=== PATIENT | female | born 1985 | race Caucasian/White ===

== ENCOUNTER 2020-07-17 21:30 | Emergency (ER) | payer BC, SELFPAY ==
--- NOTE | ~2020-07-17 | CT_ITS ---
EXAMINATION: CT abdomen pelvis w con DATE: 07/18/2020 01:08 INDICATION: Abdominal pain. TECHNIQUE: Computed tomography (CT) of the abdomen and pelvis was performed with 100 mL Omnipaque 350 intravenous contrast. Automated exposure control and iterative reconstruction technique were employe d. The dose-length product was 205.43 mGy-cm. COMPARISON: None. FINDINGS: The visualized portions of lung bases demonstrate mild atelectasis. No pleural effusion. Th e heart size is normal. No pericardial effusion. There is dependent sludge or stones in the gallbladd er, which is normal in size. The liver, spleen, pancreas, adrenal glands, and right kidney are normal . There is mild left hydronephrosis. There is a gastrostomy tube in expected position. There is a sma ll umbilical hernia containing fat. There is diffuse wall thickening of the bladder. There is punctat e gas in the bladder lumen, likely from recent instrumentation. Bilateral tubal ligation clips are no kentrell. There is a large volume of stool in the colon. There are changes of appendectomy. The left periu terine and ovarian veins are enlarged, consistent with pelvic venous insufficiency. There are no path ologically enlarged lymph nodes. There is no free intraperitoneal fluid. The bones are unremarkable. IMPRESSION: 1. Mild left hydronephrosis. 2. Diffuse bladder wall thickening, consistent with cystitis. 3. Pelvic venous insufficiency. Reviewed, dictated and finalized at location A.
--- NOTE | ~2020-07-17 | XR_ITS ---
EXAMINATION: XR chest 1V portable 07/17/2020 21:57 INDICATION: Hypotension PROCEDURE: AP portable chest COMPARISON: No prior studies for comparison. FINDINGS: The lungs are clear. The cardiomediastinal silhouette is within normal limits. There are no pleural effusions. There is no pneumothorax suspected. IMPRESSION: 1: NO ACUTE CARDIOPULMONARY DISEASE. Reviewed, dictated and finalized at location A.
[2020-07-17 21:31] VITALS: BP 79/60; PULSE 79; RESP 18; TEMP 37.1; O2SAT 100
[2020-07-17 21:41] VITALS: BP 74/62; PULSE 84; RESP 16; RESP 17; TEMP 37.1; O2SAT 100
--- NOTE | 2020-07-17 21:44 | ECG_ITS ---
Measurements Intervals [place] Rate: 81 P: 79 VT: 151 QRS: 46 QRSD: 80 T: 86 QT: 374 QTc: 436 Interpretive Statements SINUS RHYTHM EARLY PRECORDIAL R/S TRANSITION BORDERLINE T WAVE ABNORMALITY- HIGH LATERAL LEADS BASELINE ARTIFACT- II, III, AVR, AVL, AVF, V5-V6 BORDERLINE ECG Electronically Signed On 07-18-2020 7:32:23 CDT by Jim Farmer D.O.
--- NOTE | 2020-07-17 21:45 | PC.NURSE ---
EDMD presented to bedside. Updated pt on poc and pt voices her understanding.
--- NOTE | 2020-07-17 21:51 | PC.NURSE ---
CXR completed at bedside.
[2020-07-17] MEDS: SODIUM CHLORIDE 0.9% IV 1,000 ML 999 ML IV CONT ×2 (22:15)
--- NOTE | 2020-07-17 22:39 | PC.NURSE ---
Pt remains in trendelenburg position and is tolerating position well. Pt remains hypotensive but remains alert and oriented x4. BP currently 89/56. Pt has no complaints or concerns voiced at this time.
[2020-07-17 22:41] VITALS: BP 89/56; PULSE 78; RESP 17; O2SAT 100
--- NOTE | 2020-07-17 22:59 | PC.NURSE ---
Pt straight cath for urine specimen and tolerated procedure well.
--- NOTE | 2020-07-17 22:59 | PC.NURSE ---
Urine specimen collected and sent to lab. EDRN at bedside for blood draws by use of ultrasound as other attempts were unsuccessful. Pt remains in trendelenburg position and continues to tolerate well. BP is now 95/67 at this time. Pt remains alert and oriented x4. Advised to press call button for assistance.
[2020-07-17 23:01] VITALS: BP 95/67; PULSE 68; RESP 15; O2SAT 99
[2020-07-17 23:16] LABS: Add Urine Microscopic? YES; Appearance Urine Cloudy (Clear); Bacteria Urine 2+ /hpf; Bilirubin Urine Negative (Negative); Blood Urine Negative (Negative); Color Urine Yellow (Yellow); Glucose Urine UA Negative (Negative); Ketones Urine Negative (Negative); Leukocyte Esterase Ur 3+ LEU/UL (Negative); Nitrate Urine Negative (Negative); Protein Urine 1+ mg/dL (Negative); Specific Grav Ur 1.006 (1.001-1.035); Squamous Epithelial Cell Urine Few /hpf (Few); Urobilinogen Urine Negative mg/dL (<2.0); WBC Clumps Urine Present /HPF; WBC Urine >75 /hpf
[2020-07-17 23:20] LABS: Basophils Percent Auto 0.4 % (0.2-1.2); Eosinophils Absolute Auto 0.1 K/mm3 (0-0.3); Eosinophils Percent Auto 1.6 % (0-4.4); Hematocrit 34.5 % (37.0-47.0); Hemoglobin 10.7 g/dL (12.0-15.0); Immature Granulocyte Absolute 0.01 K/mm3 (0.00-0.031); Immature Granulocyte Percent A 0.1 % (0-0.5); Lymphocytes Absolute Auto 4.68 K/mm3 (0.9-3.2); Lymphocytes Percent Auto 61.5 % (18.3-44.2); Mean Corpuscular Volume 103.3 fl (80-100); Mean Platelet Volume 9.9 fl (7.4-10.4); Monocytes Absolute Auto 0.4 K/mm3 (0.1-0.6); Monocytes Percent Auto 5.7 % (2.6-8.5); Neutrophils Absolute Auto 2.3 K/mm3 (1.3-6.7); Neutrophils Percent Auto 30.7 % (45.5-73.1); Platelet Count Result 197 k/mm3 (150-375); Red Blood Count 3.34 M/mm3 (4.2-5.4); Red Cell Distribution Width 12.4 % (11.5-14.5); White Blood Count 7.6 K/mm3 (4.5-10.0)
[2020-07-17 23:30] LABS: INR 0.9; Partial Thromboplastin Time 26.9 SECONDS (22.3-36.8); Prothrombin Time 12.5 Seconds (11.1-14.7)
[2020-07-17 23:37] LABS: Lactic Acid Reflex 0.9 mmol/L (0.7-2.1)
[2020-07-17 23:42] LABS: Alanine Aminotransferase 18 U/L (4-35); Albumin Level 3.1 g/dL (3.5-5.1); Alkaline Phosphatase 28 U/L (38-126); Anion Gap 4 mmol/L (8-16); Aspartate Amino Transferase 21 U/L (14-36); Bilirubin,Total < 0.1 mg/dL (0.2-1.3); Blood Urea Nitrogen 26 mg/dL (7-17); Calcium 8.1 mg/dL (8.4-10.2); Carbon Dioxide 28 mmol/L (22-30); Chloride 107 mmol/L (98-107); Estimated Glomerular Filt Rate > 60; Glucose 78 mg/dL (65-105); Lipase 46 U/L (23-300); Potassium 3.8 mmol/L (3.4-5.0); Sodium 139 mmol/L (137-145)
[2020-07-17 23:49] LABS: Atypical Lymphocytes Present; Platelet Estimate Adequate (Adequate)
[2020-07-17 23:50] LABS: Large Platelets Present
[2020-07-17 23:54] LABS: CRP < 0.5 mg/dL (<1.0)
--- NOTE | 2020-07-17 23:55 | PC.NURSE ---
Spoke with nurse at [facility] and updated on poc.
--- NOTE | 2020-07-17 23:57 | PC.NURSE ---
Pt removed from trendelenbrg position to determine toleration.
--- NOTE | 2020-07-18 00:13 | PC.NURSE ---
Pt replaced in trendelenburg position as she did not tolerate removal well. Pt noted to remain hypotensive. Will notify EDMD.
[2020-07-18 00:19] VITALS: BP 93/75; PULSE 93; RESP 18; O2SAT 98
[2020-07-18] MEDS: SODIUM CHLORIDE 0.9% IV 1,000 ML 999 ML IV CONT (00:20)
[2020-07-18] MEDS: KETOROLAC 30 MG/ML VIAL (*BKC) IV PUSH (00:26)
--- NOTE | 2020-07-18 00:32 | PC.NURSE ---
Pt remains in trendelenburg position and continues to tolerate position well. BP now 101/74.
[2020-07-18 00:37] VITALS: BP 101/74; PULSE 85; RESP 14; O2SAT 100
--- NOTE | 2020-07-18 00:57 | PC.NURSE ---
Pt to radiology via cart.
--- NOTE | 2020-07-18 01:17 | ED.GENADULT ---
HPI - General Adult General Chief complaint: Recheck/Abnormal Lab/Rx Stated complaint: hypotension Time Seen by Provider: 07/17/20 21:37 History of Present Illness HPI narrative: Patient is a 35-year-old female that presents from an extended care facility with chief complaint of hypertension. Patient was noted to have low blood pressures today and was a also has been losing weight. Patient has a PEG tube that she receives her feedings through the patient otherwise has no complaints. The patient states that she feels a little weak but otherwise is doing okay the patient denies fever denies cough denies shortness of breath. Related Data Allergies Allergy/AdvReac Type Severity Reaction Status Date / Time No Known Allergies Allergy Verified 07/17/20 22:03 Review of Systems Review of Systems: Narrative: A 10 system review of systems was completed on the patient and is negative except for what is stated in the HPI. Nursing and ancillary documentation was reviewed. PMFSH Comments Past medical history the patient is a resident of extended care facility has history of pulmonary embolisms history of an MT also has had a PEG tube placement. Social history the patient is a resident of a residential. Exam Narrative: Exam Narrative: GENERAL: Well-appearing, well-nourished, and in no acute distress. HEAD: Normocephalic, atraumatic. EYES: PERRLA and EOMI. ENT: Nares clear, no rhinorrhea or epistaxis. Mucous membranes moist. NECK: Supple. CHEST: Clear to auscultation. No respiratory distress. HEART: Regular rate and rhythm. No murmur heard. Normal peripheral pulses. ABDOMEN: Soft, nontender, nondistended, normal active bowel sounds. PEG tube in place EXTREMITIES: Normal range of motion. No edema. SKIN: Warm, dry, no rash. NEURO: No focal deficits. Alert and oriented x3. PSYCH: Normal mood and affect. Course Vital Signs Vital signs: Vital Signs Temperature 37.1 C 07/17/20 21:31 Pulse Rate 79 07/17/20 21:31 Respiratory Rate 18 07/17/20 21:31 Blood Pressure 79/60 L 07/17/20 21:31 Pulse Oximetry 100 07/17/20 21:31 Temperature 37.1 C 07/17/20 21:41 Pulse Rate 80 07/18/20 01:36 Respiratory Rate 15 07/18/20 01:36 Blood Pressure 111/76 07/18/20 01:36 Pulse Oximetry 100 07/18/20 01:36 Medical Decision Making Vital Signs Vital Signs: Vital Signs Temperature 37.1 C 07/17/20 21:31 Pulse Rate 79 07/17/20 21:31 Respiratory Rate 18 07/17/20 21:31 Blood Pressure 79/60 L 07/17/20 21:31 Pulse Oximetry 100 07/17/20 21:31 Temperature 37.1 C 07/17/20 21:41 Pulse Rate 80 07/18/20 01:36 Respiratory Rate 15 07/18/20 01:36 Blood Pressure 111/76 07/18/20 01:36 Pulse Oximetry 100 07/18/20 01:36 Lab Data Result diagrams: 07/17/20 23:07 07/17/20 23:07 Labs: Lab Results 07/17/20 07/17/20 07/17/20 Range/Units 22:59 23:07 23:07 WBC 7.6 (4.5-10.0) K/mm3 RBC 3.34 L (4.2-5.4) M/mm3 Hgb 10.7 L (12.0-15.0) g/dL Hct 34.5 L (37.0-47.0) % MCV 103.3 H (80-100) fl MCH 32.0 (26-34) pg MCHC 31.0 L (32-36) g/dl RDW 12.4 (11.5-14.5) % Plt Count 197 (150-375) k/mm3 MPV 9.9 (7.4-10.4) fl Immature Gran % (Auto) 0.1 (0-0.5) % Neut % (Auto) 30.7 L (45.5-73.1) % Lymph % (Auto) 61.5 H (18.3-44.2) % Marion % (Auto) 5.7 (2.6-8.5) % Eos % (Auto) 1.6 (0-4.4) % Baso % (Auto) 0.4 (0.2-1.2) % Lymph # (Auto) 4.68 H (0.9-3.2) K/mm3 Marion # (Auto) 0.4 (0.1-0.6) K/mm3 Eos # (Auto) 0.1 (0-0.3) K/mm3 Baso # (Auto) 0.0 (0.0-0.1) K/mm3 Abs Immat Gran (auto) 0.01 (0.00-0.031) K/mm3 Absolute Neuts (auto) 2.3 (1.3-6.7) K/mm3 Absolute Nucleated RBC 0.0 (0.0-0.012) K/mm3 Nucleated RBC % 0.0 (0.0-0.2) % Atypical Lymphocytes Present Platelet Estimate Adequate (Adequate) Large Platelets Present PT 12.5 (11.1-14.7) Seconds INR 0.9
[2020-07-18 01:36] VITALS: BP 111/76; PULSE 80; RESP 15; TEMP 37.1; O2SAT 100
--- NOTE | 2020-07-18 01:37 | PC.NURSE ---
Pt removed from trendelenburg position at 0120 and is tolerating well; BP is now 111/76. Pt also states that her back pain has improved and rates it 1/10 at this time. Pt resting on cart with call button and personal items within reach. Advised to press call button for assistance.
--- NOTE | 2020-07-18 01:45 | PC.NURSE ---
Report called to [facility] receiving nurse, Di. Ok to send pt over.
--- NOTE | 2020-07-18 01:46 | PC.NURSE ---
called [facility] to transport patient. ETA 15 minutes.
--- NOTE | 2020-07-18 02:06 | PC.NURSE ---
[facility] here.
--- NOTE | 2020-07-18 02:10 | PC.NURSE ---
[facility] arrived for transport.
[2020-07-18 02:25] VITALS: BP 111/76; PULSE 80; RESP 15; TEMP 37; O2SAT 100
[2020-07-18 02:29] VITALS: BP 111/76; PULSE 80; RESP 15; TEMP 37; O2SAT 100
== END 2020-07-18 02:30 ==
PROVIDERS: Emergency Provider Emergency Medicine; PCP Internal Medicine
DX: N39.0 Urinary tract infection, site not specified (principal); Z93.1 Gastrostomy status; I25.2 Old myocardial infarction; Z86.711 Personal history of pulmonary embolism; R94.31 Abnormal electrocardiogram [ECG] [EKG]; N13.30 Unspecified hydronephrosis; I87.2 Venous insufficiency (chronic) (peripheral)
CPT/HCPCS: 36415; 51701; 71045; 74177; 80053; 81001; 81025; 83605; 83690; 85025; 85610; 85730; 86140; 87040; 87077; 87086; 87088; 87186; 93005; 96361; 96365; 96375; 99284; J0696; J1885; J7030; Q9967

== ENCOUNTER 2020-07-22 21:16 | Emergency (ER) | payer BC, SELFPAY ==
--- NOTE | ~2020-07-22 | CT_ITS ---
EXAMINATION: CT brain wo con DATE: 07/23/2020 00:14 INDICATION: Headache. Fall. TECHNIQUE: Computed tomography (CT) of the head was performed without intravenous contrast. The mA wa s adjusted according to patient size. Iterative reconstruction technique was employed. The dose-lengt h product was 605.33 mGy-cm. COMPARISON: None FINDINGS: There is no intracranial hemorrhage, acute infarction, or abnormal intracranial mass lesion . The ventricles are normal in size. The orbits are normal. The paranasal sinuses are clear. The mast oid air cells are normal. IMPRESSION: 1. Normal brain. Reviewed, dictated and finalized at location A. IMPRESSION: 1. Normal brain.
--- NOTE | ~2020-07-22 | CT_ITS ---
EXAMINATION: CT cervical spine wo con DATE: 07/23/2020 00:14 INDICATION: Neck pain. Fall. TECHNIQUE: Computed tomography (CT) of the cervical spine was performed without intravenous contrast. Automated exposure control and iterative reconstruction technique were employed. The dose-length pro duct was 122.49 mGy-cm. COMPARISON: None FINDINGS: There is 12 degrees dextroscoliosis of cervical spine. There is kyphosis of cervical spine. Vertebral body heights are normal. There is mildly decreased disc height at C5-C6. At C7-T1, there i s mild bilateral facet joint osteoarthritis. No neural foraminal stenosis. At C5-C6, there is mild ce ntral canal stenosis. IMPRESSION: 1. Mild cervical spondylosis. 2. Cervical dextroscoliosis and kyphosis. Reviewed, dictated and finalized at location A.
[2020-07-22 21:18] VITALS: BP 95/69; PULSE 80; RESP 15; TEMP 36.5; O2SAT 100
[2020-07-22 21:28] VITALS: BP 95/69; PULSE 82; RESP 16; TEMP 36.5; O2SAT 100
--- NOTE | 2020-07-22 21:30 | PC.NURSE ---
Pt presents to ED via EMS with complaints of fall out of bed that was in it lowest position at nursing facility. Per EMS, staff denies loc. Pt sent as precaution because she is prescribed blood thinners. Pt noted to be alert and oriented x4. Pt states she was laying in bed and woke up looking for something and fell out the bed. Pt states she hit the right side of her head on a tiled floor. Pt denies loc, nausea and emesis. Pt remains alert and oriented x4 and in no obvious distress. Vitals are stable. Call button and personal items within reach. Pt advised to press call button for assistance.
--- NOTE | 2020-07-22 22:00 | ED.FALL ---
HPI - Fall General Chief Complaint: Fall Stated Complaint: glf - rt side hematoma Time Seen by Provider: 07/22/20 21:29 Source: patient Mode of arrival: ambulatory Limitations: no limitations History of Present Illness HPI Narrative: Patient is a 35-year-old female complaining of head pain after she fell out of bed. Patient states her pain is an 8 out of 10, back of her head. Patient denies any other pain or injury. Patient denies any neck pain, back pain, chest pain, hip pain or any extremity pain/injury. Patient states that she is currently bedridden and unable to walk, does not know what was causing it and she has been worked up for it was told that it is due to her GI system. Related Data Allergies Allergy/AdvReac Type Severity Reaction Status Date / Time No Known Allergies Allergy Verified 07/17/20 22:03 Review of Systems Review of Systems: All systems reviewed & are unremarkable except as noted in HPI and below Constitutional: Constitutional: Denies body ache(s), Denies chills, Denies excessive sweating, Denies fatigue, Denies fever(s), Denies headache(s), Denies lethargy, Denies malaise, Denies weakness and Denies weight loss Eyes: Eyes: Denies blurry vision, Denies change in vision and Denies loss of vision ENT: Denies dizziness, Denies ear discharge, Denies headache(s), Denies lip swelling, Denies epistaxis, Denies nasal congestion, Denies neck pain, Denies throat swelling and Denies tongue swelling Cardiovascular: Cardiovascular: Denies chest pain, Denies chest pain at rest, Denies chest pain with activity, Denies diaphoresis, Denies rapid heart rate, Denies edema, Denies irregular heart rhythm, Denies lightheadedness, Denies palpitations, Denies dyspnea and Denies dyspnea on exertion Respiratory: Respiratory: Denies chest congestion, Denies cough, Denies hemoptysis, Denies dyspnea and Denies dyspnea on exertion Gastrointestinal: Gastrointestinal: Denies abdominal pain, Denies melena, Denies hematochezia, Denies diarrhea, Denies nausea, Denies vomiting and Denies hematemesis Musculoskeletal: Musculoskeletal: Denies abnormal gait, Denies deformity, Denies joint swelling, Denies limited range of motion, Denies neck pain and Denies numbness Neurologic: Denies Abnormal speech present, Denies abnormal gait, Denies confusion, Denies dizziness, Denies focal weakness, Denies loss of vision, Denies numbness, Denies Other visual disturbances, Denies Sensory deficit (Neuro) and Denies weakness Psychiatric: Psychiatric: Denies confusion, Denies depression, Denies auditory hallucinations, Denies homicidal ideation and Denies suicidal ideation Endocrine: Endocrine: Denies cold intolerance, Denies excessive sweating, Denies fatigue, Denies heat intolerance and Denies palpitations Hematologic/Lymphatic: Hematologic/Lymphatic: Denies easy bleeding and Denies easy bruising Allergic/Immunologic: Allergic/Immunologic: Denies lip swelling, Denies throat swelling and Denies tongue swelling PMFSH Comments Past medical history: GI disorder, unknown Family history: Negative for heart disease negative for stroke Social history: Smokes medical marijuana, no EtOH or drug use Exam Const: General: no acute distress and alert Nutritional Appearance: thin Orientation/consciousness: patient oriented x3 Limitations: no limitations Other: Frail, cachectic HENMT: Head: normal to inspection, normocephalic and atraumatic Ears: hearing grossly normal bilaterally, TM normal on the right and TM normal on the left General nose exam: Normal external nose present, Normal nares present and No nasal discharge present Face and sinus: normal facial exam Mouth: Yes Normal oral and palatal mucosa present, Yes lip normal, Yes tongue normal and Yes oropharynx normal Throat: posterior oropharynx normal, tonsils normal and uvula midline Eyes: General: appearance normal, both eyes and all related structures Pupils: Equal, round and reactive pupils present EOM: EOMs
[2020-07-22] MEDS: HYDROcodone/acetaminophen (*CRX) 5-325 MG TABLET 1 TAB PO (23:18)
--- NOTE | 2020-07-22 23:18 | PC.NURSE ---
pt resting on cart in its lowest position with no complaints or concerns voiced. Vitals are stable and pt in no obvious distress.
[2020-07-22 23:19] VITALS: BP 95/76; PULSE 101; RESP 17; O2SAT 98
--- NOTE | 2020-07-22 23:57 | PC.NURSE ---
Pt refuses straight cath and EDMD notified. EDMD ok with flagging test.
--- NOTE | 2020-07-23 00:13 | PC.NURSE ---
Pt to and from radiology via cart. Call button and personal items within reach. vitals are stable and pt in no obvious distress.
[2020-07-23 01:22] VITALS: BP 96/74; PULSE 77; RESP 46; O2SAT 96
--- NOTE | 2020-07-23 01:25 | PC.NURSE ---
Pt resting on cart in its lowest position with call button and personal items within reach. Pt denies pain at this time. Sean wasted with charge auditor. Pt vitals are stable and pt in no obvious distress at this time.
[2020-07-23 01:26] VITALS: BP 94/75; PULSE 97; RESP 13; TEMP 36.6; O2SAT 96
--- NOTE | 2020-07-23 02:06 | PC.NURSE ---
EMS to with an ETA of 30mins.
--- NOTE | 2020-07-23 02:06 | PC.NURSE ---
Report called to Evelia at [facility].
--- NOTE | 2020-07-23 03:09 | PC.NURSE ---
[facility] here.
--- NOTE | 2020-07-23 03:11 | PC.NURSE ---
EMS arrived for pt transport back to [facility].
[2020-07-23 03:14] VITALS: BP 100/76; PULSE 89; RESP 13; O2SAT 98
== END 2020-07-23 03:16 ==
PROVIDERS: Emergency Provider Emergency Medicine; PCP Internal Medicine
DX: S09.90XA Unspecified injury of head, initial encounter (principal); K92.9 Disease of digestive system, unspecified; W06.XXXA Fall from bed, initial encounter
CPT/HCPCS: 70450; 72125; 99284; A9270

== ENCOUNTER 2022-12-29 08:53 | Inpatient (IN) | payer BC, SELFPAY ==
[2022-12-29] VITALS (10 sets, daily range): BP systolic 95–145; BP diastolic 64–108; PULSE 69–95; RESP 16–20; TEMP 36.7–37.3; O2SAT 96–100
--- NOTE | ~2022-12-29 | CT_ITS ---
EXAMINATION: CT abdomen pelvis w con DATE: 12/29/2022 12:11 INDICATION: Suprapubic, right lower quadrant and left lower quadrant abdominal pain TECHNIQUE: Computed tomography (CT) of the abdomen and pelvis was performed with 100 CC Omnipaque 350 intravenous contrast. Automated exposure control and iterative reconstruction technique were employe d. Exam dose: 460.22 mGy-cm total exam DLP. COMPARISON: 07/18/2020 CT abdomen pelvis FINDINGS: Minimal discoid atelectasis at the posterior lung bases, lower lobes. Normal heart size. No pericardial or pleural effusion. There is suggestion of sludge or stones in the dependent aspect of the gallbladder. Gallbladder ultra sound would be more sensitive and accurate for detection of cholelithiasis. Gallbladder wall thicknes s is within normal range. No pericholecystic fluid or fat stranding is noted. No bile duct or pancrea tic duct dilatation. No hepatic, splenic, pancreatic or adrenal space-occupying mass lesion. There is diffusely diminished intensity of contrast enhancement of the right kidney compared to the l eft kidney. There is moderately prominent right hydronephrosis and pelviectasis. There is some enhanc ement of the renal pelvis and ureter on the right. There is diffuse thickening of the wall of the uri nary bladder with shaggy outline, suggesting possible cystitis. There is enhancement of the left renal collecting system and left renal pelvis. There is an approximately 3.3 cm right adnexal cystic lesion. Peripherally enhancing approximately 1. 4 cm left corpus luteum cyst. Status post bilateral tubal ligation. The uterus appears unremarkable. Status post appendectomy. No bowel obstruction, bowel wall thickening, pneumatosis or intraperitoneal free air is detected. No abdominal aortic aneurysm. No intraperitoneal or retroperitoneal or pelvic mass lesion or adenopat hy or ascites. Included skeletal structures are unremarkable. IMPRESSION: Suggestion of cystitis and bilateral pyelonephritis, worse on the right. Moderately severe right hydronephrosis Possible sludge and/or stones in the dependent aspect of the gallbladder Status post appendectomy 3.3 cm right ovarian cyst 1.4 cm corpus luteum cyst of left ovary Status post bilateral tubal ligation Reviewed, dictated and finalized at [facility] Reviewed, dictated and finalized at [facility].
--- NOTE | 2022-12-29 10:58 | ED.FEMALEGU ---
HPI - Female Genitourinary General Chief complaint: Urogenital-Female <Caryn Sandoval PA-C - Last Filed: 12/29/22 13:20> Stated complaint: urinary retention <Caryn Sandoval PA-C - Last Filed: 12/29/22 13:20> Time Seen by Provider: 12/29/22 10:05 <Caryn Sandoval PA-C - Last Filed: 12/29/22 13:20> History of Present Illness HPI Narrative: 37-year-old female with history of bipolar disorder, IBS, alcohol induced pancreatitis, hyperlipidemia, coronary artery disease reports from [facility] for evaluation for decreased urinary output for the past 24 hours. Per the patient, Grant catheter was placed at home but yesterday with persistent decreased urine output. Patient states she has had dysuria for the past week and believes she has urinary tract infection. She also reports right flank pain and lower abdominal pain. She states she has noticed urine output today in her Grant bag. She denies hematuria, diarrhea, fever, body aches or chills, chest pain or shortness of breath. She does report nausea and vomiting and states he has vomited once per day for the past week. Last bowel movement was a couple days ago and normal. <Caryn Sandoval PA-C - Last Filed: 12/29/22 13:20> Related Data Home medications: Home Medications Medication Instructions Recorded Confirmed acetaminophen 650 mg 650 mg PO Q8H PRN Pain, Mild 12/29/22 12/29/22 tablet,extended release aspirin 81 mg tablet 81 mg PO DAILY 12/29/22 12/29/22 atorvastatin 20 mg tablet 20 mg PO HS 12/29/22 12/29/22 cyclobenzaprine 5 mg tablet 5 mg PO TID PRN Muscle Spasm 12/29/22 12/29/22 duloxetine 60 mg capsule,delayed 120 mg PO DAILY 12/29/22 12/29/22 release famotidine 20 mg tablet 20 mg PO BID 12/29/22 12/29/22 gabapentin 100 mg tablet 200 mg PO TID 12/29/22 12/29/22 melatonin 5 mg tablet 5 mg PO HS PRN Insomnia 12/29/22 12/29/22 olanzapine 10 mg tablet 10 mg PO DAILY 12/29/22 12/29/22 ondansetron HCl 4 mg tablet 4 mg PO Q6H PRN Nausea 12/29/22 12/29/22 polyethylene glycol 3350 17 gram 17 g PO DAILY 12/29/22 12/29/22 oral powder packet (Miralax) polyethylene glycol 3350 17 gram 17 g PO DAILY PRN Constipation 12/29/22 12/29/22 oral powder packet (Miralax) tramadol 50 mg tablet 50 mg PO Q6H PRN Pain, Moderate 12/29/22 12/29/22 <Caryn Sandoval PA-C - Last Filed: 12/29/22 13:20> Allergies/Adverse reactions: Allergies Allergy/AdvReac Type Severity Reaction Status Date / Time No Known Allergies Allergy Verified 07/17/20 22:03 <Caryn Sandoval PA-C - Last Filed: 12/29/22 13:20> Review of Systems Review of Systems: CONSTITUTIONAL: Denies fever, chills EYES: Denies visual changes, redness, or discharge. ENT: Denies rhinorrhea, congestion, sore throat, or otalgia. CARDIOVASCULAR: Denies chest pain, palpitations, or edema. RESPIRATORY: Denies cough or dyspnea. GASTROINTESTINAL: See HPI GENITOURINARY: See HPI SKIN: Denies rash or itching. MUSCULOSKELETAL: See HPI NEUROLOGIC: Denies headache, numbness, dizziness, or weakness. PSYCHIATRIC: Denies anxiety or depression. <Caryn Sandoval PA-C - Last Filed: 12/29/22 13:20> [facility] Social History Social History: Social History Smoking status: Never smoker Alcohol intake: never Substance use: never Spiritual care concerns: No <Caryn Sandoval PA-C - Last Filed: 12/29/22 13:20> Exam Narrative: GENERAL: Well-appearing, in no acute distress. Patient resting comfortably in exam bed. She is pleasant and conversational. HEAD: Normocephalic EYES: PERRLA ENT: Nares clear. Mucous membranes moist. Oropharynx without tonsillar hypertrophy exudate or other lesions. Edentulous NECK: Supple. CHEST: No respiratory distress. Clear to auscultation, no adventitious breath sounds. HEART: Regular rate and rhythm. No murmur heard. Normal peripheral pulses. ABDOMEN: Abdomen soft, distended, normal active
[2022-12-29] MEDS: ONDANSETRON INJ 4 MG/2 ML VIAL IV PUSH (11:20)
[2022-12-29] MEDS: SODIUM CHLORIDE 0.9% IV 1,000 ML 999 ML IV CONT (11:20)
[2022-12-29 11:28] LABS: Appearance Urine Cloudy (Clear); Bilirubin Urine Negative (Negative); Blood Urine Trace-intact (Negative); Color Urine Yellow (Yellow); Glucose Urine UA Negative (Negative); Ketones Urine Negative (Negative); Leukocyte Esterase Ur 2+ LEU/UL (Negative); Nitrate Urine Positive (Negative); Protein Urine Negative (Negative); Urobilinogen Urine 0.2 mg/dL (<2.0)
[2022-12-29 11:28] LABS: Basophils Absolute Auto 0.1 K/mm3 (0.0-0.1); Basophils Percent Auto 0.4 % (0.2-1.2); Eosinophils Absolute Auto 0.1 K/mm3 (0-0.3); Eosinophils Percent Auto 0.8 % (0-4.4); Hematocrit 37.4 % (37.0-47.0); Hemoglobin 11.4 g/dL (12.0-15.0); Immature Granulocyte Absolute 0.11 K/mm3 (0.00-0.031); Immature Granulocyte Percent A 0.9 % (0-0.5); Lymphocytes Percent Auto 25.5 % (18.3-44.2); Mean Corpuscular HGB Conc 30.5 g/dl (32-36); Mean Corpuscular Hemoglobin 29.1 pg (26-34); Mean Corpuscular Volume 95.4 fl (80-100); Mean Platelet Volume 8.9 fl (7.4-10.4); Monocytes Absolute Auto 0.7 K/mm3 (0.1-0.6); Monocytes Percent Auto 5.4 % (2.6-8.5); Neutrophils Absolute Auto 8.1 K/mm3 (1.3-6.7); Platelet Count Result 488 k/mm3 (150-375); Red Blood Count 3.92 M/mm3 (4.2-5.4); Red Cell Distribution Width 13.3 % (11.5-14.5); White Blood Count 12.2 K/mm3 (4.5-10.0)
[2022-12-29 11:33] LABS: Alanine Aminotransferase 21 U/L (6-35); Albumin Level 3.8 g/dL (3.5-5.1); Alkaline Phosphatase 123 U/L (38-126); Anion Gap 9 mmol/L (8-16); Aspartate Amino Transferase 23 U/L (14-36); Bilirubin,Total 0.6 mg/dL (0.2-1.3); Blood Urea Nitrogen 8 mg/dL (7-17); Calcium 9.3 mg/dL (8.4-10.2); Carbon Dioxide 24 mmol/L (22-30); Chloride 105 mmol/L (98-107); Estimated CRCL calculation 59 ml/min; Estimated Glomerular Filt Rate > 60; Glucose 106 mg/dL (65-110); Lipase 47 U/L (23-300); Potassium 3.6 mmol/L (3.4-5.0); Sodium 138 mmol/L (137-145)
[2022-12-29 11:35] LABS: Bacteria Urine 4+ /hpf; Need Manual Microscopic Reviewed; Non Pathogenic Casts 0-2; Squamous Epithelial Cell Urine Many /hpf (Few); WBC Urine 51-100 /hpf
[2022-12-29 11:36] LABS: Add Urine Microscopic? YES
[2022-12-29 14:29] LABS: Lactic Acid Reflex 1.9 mmol/L (0.7-2.0)
[2022-12-29] MEDS: SODIUM CHLORIDE 0.9% IV 1,000 ML 125 ML IV CONT ×2 (14:56→23:57)
--- NOTE | 2022-12-29 20:33 | PM.IMHP ---
H&P: HPI History of Present Illness Date/Time: 12/29/22 20:33 Chief Complaint: Dysuria, Suprapubic Pain Narrative: 37-year-old female presents here with decreased urine output, dysuria, suprapubic pain with past medical history of MA complicated by subsequent CVA with residual deficits, and limited mobility. Patient presents here from [facility] with decreased urine output, dysuria, and suprapubic pain. Facility placed Grant catheter yesterday when the change in output was noted, no urinary output observed post-catheter. patient reported that she had been having urinary symptoms for the past week - dysuria without frequency, hematuria, or odor. She endorses fever, chills, mild shortness of breath, and a nonproductive cough that is new. She denies any current chest pain, diarrhea, nausea, or vomiting. Review of Systems Review of Systems: All systems reviewed & are unremarkable except as noted in HPI and below PMFSH Past Medical History Medical History (Updated 12/30/22 @ 01:19 by Salma Fountain APRN) Bedbound Bipolar disorder CAD (coronary artery disease) CVA, old, speech/language deficit Residual Weakness: L and R, upper and lower HLD (hyperlipidemia) IBS (irritable bowel syndrome) Myocardial infarction Social History Social History (Updated 12/30/22 @ 01:12 by Salma Fountain APRN) Social History: currently a resident at [facility]. surrogate decision maker: . full code Smoking status: Never smoker Alcohol intake: never Substance use: never Spiritual care concerns: No Meds Home Medications and Allergies Home Medications Medication Instructions Recorded Confirmed Type acetaminophen 650 mg 650 mg PO Q8H PRN Pain, Mild 12/29/22 12/29/22 History tablet,extended release aspirin 81 mg tablet 81 mg PO DAILY 12/29/22 12/29/22 History atorvastatin 20 mg tablet 20 mg PO HS 12/29/22 12/29/22 History cyclobenzaprine 5 mg tablet 5 mg PO TID PRN Muscle Spasm 12/29/22 12/29/22 History duloxetine 60 mg capsule,delayed 120 mg PO DAILY 12/29/22 12/29/22 History release famotidine 20 mg tablet 20 mg PO BID 12/29/22 12/29/22 History gabapentin 100 mg tablet 200 mg PO TID 12/29/22 12/29/22 History melatonin 5 mg tablet 5 mg PO HS PRN Insomnia 12/29/22 12/29/22 History olanzapine 10 mg tablet 10 mg PO QHS 12/29/22 12/29/22 History ondansetron HCl 4 mg tablet 4 mg PO Q6H PRN Nausea 12/29/22 12/29/22 History polyethylene glycol 3350 17 gram 17 g PO DAILY 12/29/22 12/29/22 History oral powder packet (Miralax) polyethylene glycol 3350 17 gram 17 g PO DAILY PRN Constipation 12/29/22 12/29/22 History oral powder packet (Miralax) tramadol 50 mg tablet 50 mg PO Q6H PRN Pain, Moderate 12/29/22 12/29/22 History Allergies Allergy/AdvReac Type Severity Reaction Status Date / Time No Known Allergies Allergy Verified 07/17/20 22:03 Vital Signs Vital Signs - 24 hr 12/29/22 09:03 12/29/22 10:32 12/29/22 11:02 Temperature 98.5 F Pulse Rate 76 83 Respiratory Rate 16 16 Blood Pressure 98/70 L 111/74 95/74 L Pulse Oximetry 96 98 99 Oxygen Delivery Room Air 12/29/22 12:31 12/29/22 13:31 12/29/22 14:01 Temperature Pulse Rate Respiratory Rate Blood Pressure 109/69 145/100 H 121/84 Pulse Oximetry Oxygen Delivery 12/29/22 15:00 12/29/22 15:10 12/29/22 15:46 Temperature 98.0 F 98.3 F Pulse Rate 69 80 Respiratory Rate 18 16 Blood Pressure 119/108 H 110/77 Pulse Oximetry 100 100 Oxygen Delivery Room Air 12/29/22 15:57 12/29/22 20:10 Temperature 99.1 F 98.4 F Pulse Rate 95 84 Respiratory Rate 16 20 Blood Pressure 103/64 104/71 Pulse Oximetry 97 98 Oxygen Delivery Exam Narrative: resting in hospital bed. Const: General: comfortable and no acute distress HENMT: Mouth: Yes moist mucous membranes Eyes: General: appearance normal, both eyes and all related structures Sclera: sclerae normal Pupils: Equal, round and reacti
[2022-12-29] MEDS: traMADol HCL (*CRX) 50 MG TABLET PO (20:55)
[2022-12-29] MEDS: GABAPENTIN 100 MG CAPSULE 200 MG PO (20:55)
[2022-12-29] MEDS: ATORVASTATIN 20 MG TABLET PO (20:55)
[2022-12-29] MEDS: CYCLOBENZAPRINE HCL 5 MG TABLET PO (20:56)
[2022-12-29] MEDS: MELATONIN 5 MG TABLET PO (20:56)
[2022-12-29] MEDS: OLANZapine 5 MG TABLET 10 MG PO (20:56)
[2022-12-29] MEDS: FAMOTIDINE 20 MG TABLET PO (20:56)
[2022-12-29 21:47] LABS: Influenza A QL RT-PCR Negative (Negative); Influenza B QL RT-PCR Negative (Negative); RSV RNA, RT-PCR Negative (Negative); SARS-CoV-2 RNA PCR Negative (Negative)
[2022-12-30] MEDS: ACETAMINOPHEN 325 MG TABLET 650 MG PO ×2 (01:58→12:48)
[2022-12-30] MEDS: LACTATED RINGERS 1,000 ML 100 ML IV CONT (02:04)
[2022-12-30 03:50] VITALS: BP 97/70; PULSE 87; RESP 20; TEMP 36.7; O2SAT 98
[2022-12-30 05:58] LABS: Basophils Absolute Auto 0.1 K/mm3 (0.0-0.1); Basophils Percent Auto 0.5 % (0.2-1.2); Eosinophils Absolute Auto 0.2 K/mm3 (0-0.3); Eosinophils Percent Auto 1.7 % (0-4.4); Hematocrit 36.4 % (37.0-47.0); Hemoglobin 11.1 g/dL (12.0-15.0); Immature Granulocyte Absolute 0.05 K/mm3 (0.00-0.031); Immature Granulocyte Percent A 0.5 % (0-0.5); Immature Platelet Fraction Pct 2.5 % (0.9-11.2); Lymphocytes Absolute Auto 3.01 K/mm3 (0.9-3.2); Lymphocytes Percent Auto 27.2 % (18.3-44.2); Mean Corpuscular HGB Conc 30.5 g/dl (32-36); Mean Corpuscular Hemoglobin 29.8 pg (26-34); Mean Corpuscular Volume 97.6 fl (80-100); Mean Platelet Volume 9.7 fl (7.4-10.4); Monocytes Absolute Auto 0.8 K/mm3 (0.1-0.6); Monocytes Percent Auto 6.9 % (2.6-8.5); Neutrophils Percent Auto 63.2 % (45.5-73.1); Platelet Count Result 460 k/mm3 (150-375); Red Blood Count 3.73 M/mm3 (4.2-5.4); Red Cell Distribution Width 13.5 % (11.5-14.5); White Blood Count 11.1 K/mm3 (4.5-10.0)
[2022-12-30 06:06] LABS: Alanine Aminotransferase 17 U/L (6-35); Albumin Level 3.4 g/dL (3.5-5.1); Alkaline Phosphatase 99 U/L (38-126); Anion Gap 7 mmol/L (8-16); Aspartate Amino Transferase 22 U/L (14-36); Bilirubin,Total 0.6 mg/dL (0.2-1.3); Blood Urea Nitrogen 5 mg/dL (7-17); Calcium 8.8 mg/dL (8.4-10.2); Carbon Dioxide 22 mmol/L (22-30); Chloride 110 mmol/L (98-107); Estimated CRCL calculation 73 ml/min; Estimated Glomerular Filt Rate > 60; Glucose 86 mg/dL (65-110); Sodium 139 mmol/L (137-145)
[2022-12-30] MEDS: ASPIRIN 81 MG CHEWABLE TABLET PO (07:58)
[2022-12-30] MEDS: GABAPENTIN 100 MG CAPSULE 200 MG PO ×3 (07:58→16:21)
[2022-12-30] MEDS: FAMOTIDINE 20 MG TABLET PO ×2 (07:59→16:21)
[2022-12-30] MEDS: DULoxetine HCL 60 MG CAPSULE.DR 120 MG PO (07:59)
[2022-12-30] MEDS: ENOXAPARIN 40 MG/0.4 ML SYRINGE SUB-Q (07:59)
[2022-12-30] MEDS: polyethylene glycoL 3350 17 GM POWD.PACK PO (07:59)
--- NOTE | 2022-12-30 13:19 | PM.IMPN ---
Progress Note: A&P Assessment and Plan (1) Pyelonephritis: Code(s): N12 - Tubulo-interstitial nephritis, not specified as acute or chronic Status: Acute Assessment and Plan: - UA positive for nitrates, 2+ leukocytes, 4+ bacteria, urine and blood cultures pending - continue Rocephin 1g q24 - WBC: 12.2 to 10.6 -CT abdomen/pelvis: cystitis and bilateral pyelonephritis, R<L with moderately severe right hydronephrosis.? Possible sludge and/or stones in the dependent aspect of the gallbladder. Evidence of a 3.3 cm right ovarian cyst and 1.4 cm corpus luteum cyst of the left ovary. - continue LR 100 mL/hour for hydration - monitor I&Os - a q.4 hours vital signs - continue monitoring daily labs CBC, CMP - (2) Hydronephrosis: Qualifiers: Hydronephrosis type: unspecified Qualified Code(s): N13.30 - Unspecified hydronephrosis Code(s): N13.30 - Unspecified hydronephrosis Status: Acute Assessment and Plan: see above (3) Shortness of breath: Code(s): R06.02 - Shortness of breath Status: Acute Assessment and Plan: -Viral PCR negative for influenza, RSV, COVID -?lung sounds clear on exam -?continue to monitor oxygen saturation, currently on room air -?no abnormalities of the lungs noted on CT abdomen pelvis Plan Problem List Time Spent With Patient Time with patient: 25 - 35 minutes Subjective Date/time seen: 12/30/22 13:19 Interval history: This is a 37-year-old female who presented to ED with urinary retention. Patient has had low urine output for past 24 hours prior to admission and a Grant was placed at home due to the urinary retention. She started complaining of dysuria for the past week with concerns for UTI. UA showing positive nitrates, 2+ leukocytes, 4+ bacteria. Urine culture and blood cultures pending. WBC 11.1, BUN/ Creat.- 5/0.08. Patient has history of E coli in the urine back in 2020 currently on IV Rocephin. On examination today patient denies pain or CVA tenderness. She also denies nausea, vomiting,diarrhea, or dysuria. Patient denies any complaints at this time. No overnight events. Review of Systems Review of Systems: All systems reviewed & are unremarkable except as noted in HPI and below Constitutional: Constitutional: Reports no additional constitutional complaints Eyes: Eyes: Reports no additional eye complaints ENT: Reports system reviewed and no additional complaints, except as documented Cardiovascular: Cardiovascular: Reports no additional cardiovascular complaints Respiratory: Respiratory: Reports no additional respiratory complaints Gastrointestinal: Gastrointestinal: Reports no additional gastrointestinal complaints Genitourinary: Genitourinary: Reports no additional female genitourinary complaints Musculoskeletal: Musculoskeletal: Reports no additional musculoskeletal complaints Integumentary/Breasts: Skin/Breast: Reports system reviewed and no additional complaints, except as docu Neurologic: Reports system reviewed and no additional complaints, except as documented Psychiatric: Psychiatric: Reports no additional psychiatric complaints Exam Narrative: GENERAL:? Patient resting comfortably in exam bed. HEAD: Normocephalic EYES: PERRLA, sclera clear ENT: Nares clear.? Mucous membranes moist.? NECK: Supple, no JVD? CHEST:? No respiratory distress. Clear to auscultation, no adventitious breath sounds. HEART: Regular rate and rhythm.? No murmur heard.? Normal peripheral pulses. Normal S1 and S2 ABDOMEN: Abdomen soft, non-distended, normoactive bowel sounds. No rebound, guarding or rigidity.? No CVA tenderness. EXTREMITIES: Moving all extremities spontaneously. Foot drop bilaterally SKIN: Warm, dry, no rash. NEURO: No focal deficits.? Alert and oriented x3. PSYCH: Normal mood, flat affect. Objective Data Vital Signs Vital Signs: Vital Signs - 24 hr 12/29/22 13:31 12/29/22 14:01 12/29/22 15:00 Te
[2022-12-30 14:00] VITALS: BP 106/68; PULSE 112; RESP 16; TEMP 36.4; O2SAT 98
[2022-12-30 16:00] VITALS: BP 112/59; PULSE 101; RESP 18; TEMP 36.3; O2SAT 98
[2022-12-30 19:22] VITALS: BP 112/64; PULSE 87; RESP 16; TEMP 36.6; O2SAT 97
[2022-12-30] MEDS: SODIUM CHLORIDE 0.9% IV 1,000 ML 125 ML IV CONT (20:20)
[2022-12-30] MEDS: traMADol HCL (*CRX) 50 MG TABLET PO (20:22)
[2022-12-30] MEDS: MELATONIN 5 MG TABLET PO (20:22)
[2022-12-30] MEDS: OLANZapine 5 MG TABLET 10 MG PO (20:22)
[2022-12-30] MEDS: CYCLOBENZAPRINE HCL 5 MG TABLET PO (20:22)
[2022-12-30] MEDS: ATORVASTATIN 20 MG TABLET PO (20:22)
[2022-12-31 04:00] VITALS: BP 110/76; PULSE 85; RESP 20; TEMP 36.9; O2SAT 97
[2022-12-31] MEDS: SODIUM CHLORIDE 0.9% IV 1,000 ML 125 ML IV CONT ×3 (04:42→21:21)
[2022-12-31 06:41] LABS: Basophils Absolute Auto 0.1 K/mm3 (0.0-0.1); Basophils Percent Auto 0.4 % (0.2-1.2); Eosinophils Absolute Auto 0.2 K/mm3 (0-0.3); Eosinophils Percent Auto 2.1 % (0-4.4); Hematocrit 36.6 % (37.0-47.0); Hemoglobin 11.1 g/dL (12.0-15.0); Immature Granulocyte Absolute 0.05 K/mm3 (0.00-0.031); Immature Granulocyte Percent A 0.4 % (0-0.5); Lymphocytes Absolute Auto 2.79 K/mm3 (0.9-3.2); Lymphocytes Percent Auto 23.9 % (18.3-44.2); Mean Corpuscular HGB Conc 30.3 g/dl (32-36); Mean Corpuscular Hemoglobin 28.8 pg (26-34); Mean Corpuscular Volume 94.8 fl (80-100); Mean Platelet Volume 8.6 fl (7.4-10.4); Monocytes Absolute Auto 0.8 K/mm3 (0.1-0.6); Monocytes Percent Auto 7.2 % (2.6-8.5); Neutrophils Absolute Auto 7.7 K/mm3 (1.3-6.7); Platelet Count Result 455 k/mm3 (150-375); Red Blood Count 3.86 M/mm3 (4.2-5.4); Red Cell Distribution Width 13.4 % (11.5-14.5); White Blood Count 11.7 K/mm3 (4.5-10.0)
[2022-12-31 06:50] LABS: Alanine Aminotransferase 16 U/L (6-35); Albumin Level 3.4 g/dL (3.5-5.1); Alkaline Phosphatase 106 U/L (38-126); Anion Gap 8 mmol/L (8-16); Aspartate Amino Transferase 23 U/L (14-36); Bilirubin,Total 0.5 mg/dL (0.2-1.3); Blood Urea Nitrogen 4 mg/dL (7-17); Calcium 8.6 mg/dL (8.4-10.2); Carbon Dioxide 23 mmol/L (22-30); Chloride 107 mmol/L (98-107); Estimated CRCL calculation 59 ml/min; Estimated Glomerular Filt Rate > 60; Glucose 95 mg/dL (65-110); Potassium 3.5 mmol/L (3.4-5.0); Sodium 138 mmol/L (137-145)
[2022-12-31 08:00] VITALS: BP 108/68; PULSE 67; PULSE 85; RESP 16; RESP 20; TEMP 36.5; O2SAT 97; O2SAT 98
--- NOTE | 2022-12-31 08:35 | PM.IMPN ---
Progress Note: A&P Assessment and Plan (1) Pyelonephritis: Code(s): N12 - Tubulo-interstitial nephritis, not specified as acute or chronic Status: Acute Assessment and Plan: - UA positive for nitrates, 2+ leukocytes, 4+ bacteria, urine and blood cultures pending - continue Rocephin 1g q24 - WBC: 12.2 to 10.6 -CT abdomen/pelvis: cystitis and bilateral pyelonephritis, R<L with moderately severe right hydronephrosis.? Possible sludge and/or stones in the dependent aspect of the gallbladder. Evidence of a 3.3 cm right ovarian cyst and 1.4 cm corpus luteum cyst of the left ovary. - continue LR 100 mL/hour for hydration - monitor I&Os - a q.4 hours vital signs - continue monitoring daily labs CBC, CMP - (2) Hydronephrosis: Qualifiers: Hydronephrosis type: unspecified Qualified Code(s): N13.30 - Unspecified hydronephrosis Code(s): N13.30 - Unspecified hydronephrosis Status: Acute Assessment and Plan: see above (3) Shortness of breath: Code(s): R06.02 - Shortness of breath Status: Acute Assessment and Plan: -Viral PCR negative for influenza, RSV, COVID -?lung sounds clear on exam -?continue to monitor oxygen saturation, currently on room air -?no abnormalities of the lungs noted on CT abdomen pelvis Plan Problem List Subjective Date/time seen: 12/31/22 08:35 Interval history: 12/30/2022: This is a 37-year-old female who presented to ED with urinary retention. Patient has had low urine output for past 24 hours prior to admission and a Grant was placed at home due to the urinary retention. She started complaining of dysuria for the past week with concerns for UTI. UA showing positive nitrates, 2+ leukocytes, 4+ bacteria. Urine culture and blood cultures pending. WBC 11.1, BUN/ Creat.- 5/0.08. Patient has history of E coli in the urine back in 2020 currently on IV Rocephin. On examination today patient denies pain or CVA tenderness. She also denies nausea, vomiting,diarrhea, or dysuria. Patient denies any complaints at this time. No overnight events. 12/31/2022: Review of Systems Review of Systems: All systems reviewed & are unremarkable except as noted in HPI and below Constitutional: Constitutional: Reports no additional constitutional complaints Eyes: Eyes: Reports no additional eye complaints ENT: Reports system reviewed and no additional complaints, except as documented Cardiovascular: Cardiovascular: Reports no additional cardiovascular complaints Respiratory: Respiratory: Reports no additional respiratory complaints Gastrointestinal: Gastrointestinal: Reports no additional gastrointestinal complaints Genitourinary: Genitourinary: Reports no additional female genitourinary complaints Musculoskeletal: Musculoskeletal: Reports no additional musculoskeletal complaints Integumentary/Breasts: Skin/Breast: Reports system reviewed and no additional complaints, except as docu Neurologic: Reports system reviewed and no additional complaints, except as documented Psychiatric: Psychiatric: Reports no additional psychiatric complaints Exam Narrative: GENERAL:? Patient resting comfortably in exam bed. HEAD: Normocephalic EYES: PERRLA, sclera clear ENT: Nares clear.? Mucous membranes moist.? NECK: Supple, no JVD? CHEST:? No respiratory distress. Clear to auscultation, no adventitious breath sounds. HEART: Regular rate and rhythm.? No murmur heard.? Normal peripheral pulses. Normal S1 and S2 ABDOMEN: Abdomen soft, non-distended, normoactive bowel sounds. No rebound, guarding or rigidity.? No CVA tenderness. EXTREMITIES: Moving all extremities spontaneously. Foot drop bilaterally SKIN: Warm, dry, no rash. NEURO: No focal deficits.? Alert and oriented x3. PSYCH: Normal mood, flat affect. Const: General: comfortable and no acute distress HENMT: Mouth: Yes moist mucous membranes Eyes: General: appearance normal, both eyes and all
[2022-12-31 08:40] LABS: Glucose Point of Care 88 mg/dl (65-105)
[2022-12-31] MEDS: ENOXAPARIN 40 MG/0.4 ML SYRINGE SUB-Q (10:17)
[2022-12-31] MEDS: FAMOTIDINE 20 MG TABLET PO ×2 (10:17→16:49)
[2022-12-31] MEDS: DULoxetine HCL 60 MG CAPSULE.DR 120 MG PO (10:17)
[2022-12-31] MEDS: ASPIRIN 81 MG CHEWABLE TABLET PO (10:18)
[2022-12-31] MEDS: polyethylene glycoL 3350 17 GM POWD.PACK PO (10:18)
[2022-12-31] MEDS: GABAPENTIN 100 MG CAPSULE 200 MG PO ×3 (10:18→16:49)
[2022-12-31 12:00] VITALS: BP 110/89
[2022-12-31 12:20] LABS: Glucose Point of Care 85 mg/dl (65-105)
[2022-12-31 15:06] VITALS: BP 102/73; PULSE 66; RESP 15; TEMP 36.7; O2SAT 99
--- NOTE | 2022-12-31 16:18 | PM.IMPN ---
Progress Note: A&P Assessment and Plan (1) Pyelonephritis: Code(s): N12 - Tubulo-interstitial nephritis, not specified as acute or chronic Status: Acute Assessment and Plan: 12/30/2022: - UA positive for nitrates, 2+ leukocytes, 4+ bacteria, urine and blood cultures pending - continue Rocephin 1g q24 - WBC: 12.2 to 10.6 -CT abdomen/pelvis: cystitis and bilateral pyelonephritis, R<L with moderately severe right hydronephrosis.? Possible sludge and/or stones in the dependent aspect of the gallbladder. Evidence of a 3.3 cm right ovarian cyst and 1.4 cm corpus luteum cyst of the left ovary. - continue LR 100 mL/hour for hydration - monitor I&Os - a q.4 hours vital signs - continue monitoring daily labs CBC, CMP 12/31/2022: -white blood cell count 11.7 today -continue LR at 100 mil per hour for hydration until patient is taking adequate amount of oral intake -continue Rocephin -blood cultures x2 no growth day 2 -urine culture showing E coli however sensitivities are not back, patient will remain on Rocephin IV -discuss discharge planning with care management (2) Hydronephrosis: Qualifiers: Hydronephrosis type: unspecified Qualified Code(s): N13.30 - Unspecified hydronephrosis Code(s): N13.30 - Unspecified hydronephrosis Status: Acute Assessment and Plan: see above (3) Shortness of breath: Code(s): R06.02 - Shortness of breath Status: Acute Assessment and Plan: 12/30/2022 -Viral PCR negative for influenza, RSV, COVID -?lung sounds clear on exam -?continue to monitor oxygen saturation, currently on room air -?no abnormalities of the lungs noted on CT abdomen pelvis 12/31/2022 -patient on room air, no acute respiratory distress -lungs clear to auscultation, no adventitious lung sounds. Plan Problem List Time Spent With Patient Time with patient: 25 - 35 minutes Subjective Date/time seen: 12/31/22 16:18 Interval history: 12/30/2022: This is a 37-year-old female who presented to ED with urinary retention. Patient has had low urine output for past 24 hours prior to admission and a Grant was placed at home due to the urinary retention. She started complaining of dysuria for the past week with concerns for UTI. UA showing positive nitrates, 2+ leukocytes, 4+ bacteria. Urine culture and blood cultures pending. WBC 11.1, BUN/ Creat.- 5/0.08. Patient has history of E coli in the urine back in 2020 currently on IV Rocephin. On examination today patient denies pain or CVA tenderness. She also denies nausea, vomiting,diarrhea, or dysuria. Patient denies any complaints at this time. No overnight events. 12/31/2022: WBC 11.7, blood glucose ranging in the mid to upper 80s, blood cultures x2 no growth day 2, urine culture shows E coli however sensitivities are not back. Patient remains on Rocephin. On examination patient alert to voice and oriented. Nurse reports the patient refused lunch today and that there was quite a bit of sediment coming from her Grant catheter which is to be expected with the bilateral pyelonephritis. Patient did not have any overnight events. Will continue with current plan of care. Review of Systems Review of Systems: All systems reviewed & are unremarkable except as noted in HPI and below Constitutional: Constitutional: Reports no additional constitutional complaints Eyes: Eyes: Reports no additional eye complaints ENT: Reports system reviewed and no additional complaints, except as documented Cardiovascular: Cardiovascular: Reports no additional cardiovascular complaints Respiratory: Respiratory: Reports no additional respiratory complaints Gastrointestinal: Gastrointestinal: Reports no additional gastrointestinal complaints Genitourinary: Genitourinary: Reports no additional female genitourinary complaints Musculoskeletal: Musculoskeletal: Reports no additional musculoskeletal complaints Integumentary/Breasts: Skin
[2022-12-31 17:13] LABS: Glucose Point of Care 86 mg/dl (65-105)
[2022-12-31 20:43] VITALS: BP 103/68; PULSE 86; RESP 18; TEMP 36.1; O2SAT 99
[2022-12-31] MEDS: OLANZapine 5 MG TABLET 10 MG PO (21:19)
[2022-12-31] MEDS: MELATONIN 5 MG TABLET PO (21:19)
[2022-12-31] MEDS: CYCLOBENZAPRINE HCL 5 MG TABLET PO (21:19)
[2022-12-31] MEDS: traMADol HCL (*CRX) 50 MG TABLET PO (21:19)
[2022-12-31] MEDS: ATORVASTATIN 20 MG TABLET PO (21:19)
[2023-01-01] MEDS: SODIUM CHLORIDE 0.9% IV 1,000 ML 125 ML IV CONT (04:55)
[2023-01-01 04:57] VITALS: BP 117/65; PULSE 62; RESP 16; TEMP 36.5; O2SAT 99
[2023-01-01 06:20] LABS: Basophils Absolute Auto 0.1 K/mm3 (0.0-0.1); Basophils Percent Auto 0.5 % (0.2-1.2); Eosinophils Absolute Auto 0.3 K/mm3 (0-0.3); Eosinophils Percent Auto 2.6 % (0-4.4); Hematocrit 33.4 % (37.0-47.0); Hemoglobin 10.3 g/dL (12.0-15.0); Immature Granulocyte Absolute 0.06 K/mm3 (0.00-0.031); Immature Granulocyte Percent A 0.5 % (0-0.5); Lymphocytes Absolute Auto 3.14 K/mm3 (0.9-3.2); Lymphocytes Percent Auto 27.7 % (18.3-44.2); Mean Corpuscular HGB Conc 30.8 g/dl (32-36); Mean Corpuscular Hemoglobin 29.1 pg (26-34); Mean Corpuscular Volume 94.4 fl (80-100); Mean Platelet Volume 9.2 fl (7.4-10.4); Monocytes Percent Auto 8.6 % (2.6-8.5); Neutrophils Absolute Auto 6.8 K/mm3 (1.3-6.7); Neutrophils Percent Auto 60.1 % (45.5-73.1); Platelet Count Result 456 k/mm3 (150-375); Red Blood Count 3.54 M/mm3 (4.2-5.4); Red Cell Distribution Width 13.4 % (11.5-14.5); White Blood Count 11.3 K/mm3 (4.5-10.0)
[2023-01-01 06:36] LABS: Alanine Aminotransferase 15 U/L (6-35); Albumin Level 3.2 g/dL (3.5-5.1); Alkaline Phosphatase 105 U/L (38-126); Anion Gap 7 mmol/L (8-16); Aspartate Amino Transferase 19 U/L (14-36); Bilirubin,Total 0.5 mg/dL (0.2-1.3); Blood Urea Nitrogen 5 mg/dL (7-17); Calcium 8.4 mg/dL (8.4-10.2); Carbon Dioxide 21 mmol/L (22-30); Chloride 109 mmol/L (98-107); Estimated CRCL calculation 65 ml/min; Estimated Glomerular Filt Rate > 60; Glucose 88 mg/dL (65-110); Potassium 3.3 mmol/L (3.4-5.0); Sodium 137 mmol/L (137-145)
[2023-01-01 08:00] VITALS: PULSE 71; RESP 14; O2SAT 98
[2023-01-01] MEDS: GABAPENTIN 100 MG CAPSULE 200 MG PO ×3 (08:10→17:28)
[2023-01-01] MEDS: ASPIRIN 81 MG CHEWABLE TABLET PO (08:10)
[2023-01-01] MEDS: FAMOTIDINE 20 MG TABLET PO ×2 (08:11→17:28)
[2023-01-01] MEDS: CYCLOBENZAPRINE HCL 5 MG TABLET PO (08:11)
[2023-01-01] MEDS: DULoxetine HCL 60 MG CAPSULE.DR 120 MG PO (08:11)
[2023-01-01] MEDS: ENOXAPARIN 40 MG/0.4 ML SYRINGE SUB-Q (08:11)
[2023-01-01] MEDS: POTASSIUM CHLORIDE 20 MEQ ER TABLET 40 MEQ PO (08:12)
[2023-01-01 10:06] VITALS: BP 101/68; PULSE 71; RESP 14; TEMP 36.1; O2SAT 98
--- NOTE | 2023-01-01 10:17 | PM.IMPN ---
Progress Note: A&P Assessment and Plan (1) Pyelonephritis: Code(s): N12 - Tubulo-interstitial nephritis, not specified as acute or chronic Status: Acute Assessment and Plan: 12/30/2022: - UA positive for nitrates, 2+ leukocytes, 4+ bacteria, urine and blood cultures pending - continue Rocephin 1g q24 - WBC: 12.2 to 10.6 -CT abdomen/pelvis: cystitis and bilateral pyelonephritis, R<L with moderately severe right hydronephrosis.? Possible sludge and/or stones in the dependent aspect of the gallbladder. Evidence of a 3.3 cm right ovarian cyst and 1.4 cm corpus luteum cyst of the left ovary. - continue LR 100 mL/hour for hydration - monitor I&Os - a q.4 hours vital signs - continue monitoring daily labs CBC, CMP 12/31/2022: -white blood cell count 11.7 today -continue LR at 100 mil per hour for hydration until patient is taking adequate amount of oral intake -continue Rocephin -blood cultures x2 no growth day 2 -urine culture showing E coli however sensitivities are not back, patient will remain on Rocephin IV -discuss discharge planning with care management 01/01/2023: -WBC 11.3. -will discontinue LR as patient is taking in adequate amount of oral intake. -continue Rocephin -blood cultures x2 no growth day 3 -urine culture still pending sensitivities -discharge planning discussed with care management. Plan is to send patient back to facility once sensitivities are back and we can start oral antibiotics. -will discontinue Grant catheter today. -potassium 3.3 this morning will replace with 40 mEq of potassium oral. -continue to monitor labs (2) Hydronephrosis: Qualifiers: Hydronephrosis type: unspecified Qualified Code(s): N13.30 - Unspecified hydronephrosis Code(s): N13.30 - Unspecified hydronephrosis Status: Acute Assessment and Plan: see above (3) Shortness of breath: Code(s): R06.02 - Shortness of breath Status: Acute Assessment and Plan: 12/30/2022 -Viral PCR negative for influenza, RSV, COVID -?lung sounds clear on exam -?continue to monitor oxygen saturation, currently on room air -?no abnormalities of the lungs noted on CT abdomen pelvis 12/31/2022 -patient on room air, no acute respiratory distress -lungs clear to auscultation, no adventitious lung sounds. 01/01/2023 -no change to plan of care. See HPI. Time Spent With Patient Time with patient: 25 - 35 minutes Subjective Date/time seen: 01/01/23 10:17 Interval history: 12/30/2022: This is a 37-year-old female who presented to ED with urinary retention.? Patient has had low urine output for past 24 hours prior to admission and a Grant was placed at home due to the urinary retention.? She started complaining of dysuria for the past week with concerns for UTI. UA showing positive nitrates, 2+ leukocytes, 4+ bacteria.? Urine culture and blood cultures pending. WBC 11.1, BUN/ Creat.- 5/0.08. Patient has history of E coli in the urine back in 2020 currently on IV Rocephin.? On examination today patient denies pain or CVA tenderness. She also denies nausea, vomiting,diarrhea, or dysuria. Patient denies any complaints at this time. No overnight events. ?12/31/2022: WBC 11.7, blood glucose ranging in the mid to upper 80s, blood cultures x2 no growth day 2, urine culture shows E coli however sensitivities are not back.? Patient remains on Rocephin.? On examination patient alert to voice and oriented.? Nurse reports the patient refused lunch today and that there was quite a bit of sediment coming from her Grant catheter which is to be expected with the bilateral pyelonephritis.? Patient did not have any overnight events.? Will continue with current plan of care. 01/01/2023 WBC 11.3, potassium 3.3, blood glucose ranging in the 80s and appears stable. Blood cultures x2 are no growth day 3, urine culture still pending sensitivities. On exam today patient is alert to voice oriented x3. She is requesting to have her Fol
[2023-01-01] MEDS: OLANZapine 5 MG TABLET 10 MG PO (20:10)
[2023-01-01] MEDS: ATORVASTATIN 20 MG TABLET PO (20:10)
[2023-01-01 21:45] VITALS: BP 105/72; PULSE 85; RESP 16; TEMP 36.4; O2SAT 96
[2023-01-02 04:10] VITALS: BP 113/69; PULSE 73; RESP 16; TEMP 36.5; O2SAT 98
[2023-01-02 06:30] LABS: Basophils Absolute Auto 0.1 K/mm3 (0.0-0.1); Basophils Percent Auto 0.4 % (0.2-1.2); Eosinophils Absolute Auto 0.3 K/mm3 (0-0.3); Eosinophils Percent Auto 2.6 % (0-4.4); Hematocrit 37.3 % (37.0-47.0); Hemoglobin 11.5 g/dL (12.0-15.0); Immature Granulocyte Absolute 0.06 K/mm3 (0.00-0.031); Immature Granulocyte Percent A 0.5 % (0-0.5); Lymphocytes Absolute Auto 3.14 K/mm3 (0.9-3.2); Lymphocytes Percent Auto 26.8 % (18.3-44.2); Mean Corpuscular HGB Conc 30.8 g/dl (32-36); Mean Corpuscular Hemoglobin 29.1 pg (26-34); Mean Corpuscular Volume 94.4 fl (80-100); Mean Platelet Volume 8.7 fl (7.4-10.4); Monocytes Absolute Auto 0.8 K/mm3 (0.1-0.6); Monocytes Percent Auto 6.8 % (2.6-8.5); Neutrophils Absolute Auto 7.4 K/mm3 (1.3-6.7); Neutrophils Percent Auto 62.9 % (45.5-73.1); Platelet Count Result 462 k/mm3 (150-375); Red Blood Count 3.95 M/mm3 (4.2-5.4); Red Cell Distribution Width 13.5 % (11.5-14.5); White Blood Count 11.7 K/mm3 (4.5-10.0)
[2023-01-02 06:42] LABS: Alanine Aminotransferase 23 U/L (6-35); Albumin Level 3.6 g/dL (3.5-5.1); Alkaline Phosphatase 121 U/L (38-126); Anion Gap 10 mmol/L (8-16); Aspartate Amino Transferase 33 U/L (14-36); Bilirubin,Total 0.6 mg/dL (0.2-1.3); Blood Urea Nitrogen 6 mg/dL (7-17); Calcium 9.3 mg/dL (8.4-10.2); Carbon Dioxide 19 mmol/L (22-30); Chloride 108 mmol/L (98-107); Estimated CRCL calculation 65 ml/min; Estimated Glomerular Filt Rate > 60; Glucose 97 mg/dL (65-110); Magnesium 2.2 mg/dL (1.6-2.3); Phosphorus 3.8 mg/dL (2.5-4.5); Sodium 137 mmol/L (137-145)
[2023-01-02 07:30] VITALS: O2SAT 98
--- NOTE | 2023-01-02 07:35 | PM.DS ---
DS: Admitting Diagnosis Discharge Date 01/02/23 Admitting Diagnosis Pyelonephritis Hydronephrosis Shortness of Breath DS: Discharge Diagnosis Discharge Diagnosis (1) Pyelonephritis: Code(s): N12 - Tubulo-interstitial nephritis, not specified as acute or chronic Status: Acute (2) Hydronephrosis: Qualifiers: Hydronephrosis type: unspecified Qualified Code(s): N13.30 - Unspecified hydronephrosis Code(s): N13.30 - Unspecified hydronephrosis Status: Acute (3) Shortness of breath: Code(s): R06.02 - Shortness of breath Status: Acute DS: Summary Hospital Course Reason for hospitalization: UTI and hydronephrosis Hospital Course: Patient is a 37-year-old female who presented to hospital with decreased urine output, dysuria, suprapubic pain. 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 Prior to coming to the hospital the facility placed a Grant catheter when the change in output was noted. Patient reported having symptoms for the past week prior to presentation. Workup in hospital include a CT of the abdomen pelvis with contrast which shown cystitis and bilateral pyelonephritis, worse on the right, moderately severe right hydronephrosis, possibly sludge and or stones in the dependent aspect of the gallbladder. Patient had blood cultures that are no growth day 4, and a urine culture which revealed E coli. Patient patient was started on IV Rocephin and had 3 doses. Sensitivity on the culture came back today we will start the patient on cefdinir 300 mg b.i.d. for the next 5 days. On exam today she is alert and oriented, ready to go back home. White blood cell count today was 11.7, sodium 137, potassium 4.0. All other labs were unremarkable. Grant catheter was removed yesterday, patient voiding. Patient slept well overnight and has no new complaints today. Plan of care discussed with patient and she is agreeable to her plan of care. She will follow-up with her primary care in 1 week. Status at Discharge Cognitive/behavioral status at discharge: Alert and oriented x3 Functional status at discharge: bed bound Overall status at discharge: patient is back to baseline Time Spent with Patient Time attestation: Total time spent providing and/or coordinating discharge services: Time spent: Greater than 30 minutes Exam Narrative: CONSTITUTIONAL: Alert and oriented x3, flat affect EYES: Denies visual changes, redness, or discharge. Pupils 4 mm equal and responsive to light Neck: Supple, trachea midline, no lymph nodes felt on exam. ENT: Denies rhinorrhea, congestion, sore throat, or otalgia. CARDIOVASCULAR: Denies chest pain, palpitations, or edema. Normal S1 and S2, RRR RESPIRATORY: Denies cough or dyspnea. Lungs clear to auscultation, no adventitious lung sounds noted GASTROINTESTINAL: Denies nausea, vomiting, abdominal pain. Bowel sounds present and normoactive GENITOURINARY: Grant catheter removed yesterday, patient voiding without any trouble. SKIN: Warm dry and intact MUSCULOSKELETAL: Moving all extremities well, no swelling, no pain NEUROLOGIC: Denies headache, numbness, dizziness, or weakness. PSYCHIATRIC: Denies anxiety or depression. Flat affect Const: General: comfortable and no acute distress HENMT: Mouth: Yes moist mucous membranes Eyes: General: appearance normal, both eyes and all related structures Sclera: sclerae normal Pupils: Equal, round and reactive pupils present Resp: Effort & Inspection: normal respiratory effort Auscultation: clear to auscultation bilaterally Cardio: Rate: regular rate Rhythm: regular rhythm GI: Auscultation: normal bowel sounds Urinary Catheter: Urinary Catheter: patent and draining Skin: General skin exam: normal color and no rashes or lesions noted Wounds: no wounds Neuro: Cranial nerves: Yes Equal, round and reactive pupils
[2023-01-02] MEDS: GABAPENTIN 100 MG CAPSULE 200 MG PO ×2 (07:57→12:29)
[2023-01-02] MEDS: ENOXAPARIN 40 MG/0.4 ML SYRINGE SUB-Q (07:58)
[2023-01-02] MEDS: ASPIRIN 81 MG CHEWABLE TABLET PO (07:59)
[2023-01-02] MEDS: FAMOTIDINE 20 MG TABLET PO (07:59)
[2023-01-02] MEDS: DULoxetine HCL 60 MG CAPSULE.DR 120 MG PO (07:59)
[2023-01-02] MEDS: CYCLOBENZAPRINE HCL 5 MG TABLET PO (07:59)
[2023-01-02 15:37] LABS: SARS-CoV-2 RNA PCR Negative (Negative)
== END 2023-01-02 17:07 | DRG 463 ==
LOC: ANHED 13:16 → ANH3MEDSUR 14:37 → ANH3MED 15:37
PROVIDERS: Student in an Organized Health Care Education/Training Program; Admitting Provider Student in an Organized Health Care Education/Training Program; Emergency Provider Physician Assistant; PCP Internal Medicine; Visit Provider Nurse Practitioner Acute Care
DX: N10 Acute pyelonephritis (principal); I69.351 Hemiplegia and hemiparesis following cerebral infarction affecting right dominant side; B96.20 Unspecified Escherichia coli [E. coli] as the cause of diseases classified elsewhere; R33.9 Retention of urine, unspecified; E78.5 Hyperlipidemia, unspecified; N13.30 Unspecified hydronephrosis; I25.10 Atherosclerotic heart disease of native coronary artery without angina pectoris; K80.20 Calculus of gallbladder without cholecystitis without obstruction; K58.9 Irritable bowel syndrome, unspecified; N83.201 Unspecified ovarian cyst, right side; N83.12 Corpus luteum cyst of left ovary; I69.354 Hemiplegia and hemiparesis following cerebral infarction affecting left non-dominant side; I69.328 Other speech and language deficits following cerebral infarction; I25.2 Old myocardial infarction; Z74.01 Bed confinement status; Z11.52 Encounter for screening for COVID-19
CPT/HCPCS: 36415; 74177; 80053; 81001; 81025; 82948; 83605; 83690; 83735; 84100; 85025; 85055; 87040; 87077; 87086; 87186; 87635; 87637; 96360; 96361; 96365; 96375; 99285; A9270; G0378; G0379; J0696; J1650; J2405; J7030; J7120; Q9967

== ENCOUNTER 2024-02-02 18:58 | Emergency (ER) | payer BC, SELFPAY ==
--- NOTE | ~2024-02-02 | XR_ITS ---
EXAMINATION: XR chest port-a-cath/central DATE: 02/03/2024 03:21 INDICATION: Central line placement. TECHNIQUE: A single frontal view of the chest was obtained. COMPARISON: Chest single view 02/02/2024, CT abdomen and pelvis 02/03/2024 FINDINGS: There is no pneumonia, pleural effusion, or pneumothorax. The heart size is normal. A right internal jugular central venous catheter is seen with tip in the right atrium. IMPRESSION: 1. Central line tip in the right atrium. Reviewed, dictated and finalized at location A. STOP CHECKER
--- NOTE | ~2024-02-02 | XR_ITS ---
CHEST RADIOGRAPH CLINICAL HISTORY: tachycardia, anxiety . COMPARISON: 07/18/2019 TECHNIQUE: Single portable view of the chest. FINDINGS The cardiomediastinal silhouette is unremarkable. The lungs are clear. Visualized osseous structures and soft tissues are unremarkable. IMPRESSION: No focal infiltrate or effusion. Reviewed, dictated and finalized at location A. ICAL ANALYTICAL SAMPLER
--- NOTE | ~2024-02-02 | CT_ITS ---
CLINICAL INDICATION: 38-year-old nonambulatory patient with a history of pyelonephritis and multiple urinary tract infections presents with back pain and a right flank mass. COMPARISON: 12/29/2022 and 07/18/2020. TECHNIQUE: Multiple contiguous axial images of the abdomen and pelvis were performed without the admi nistration of intravenous contrast The dose-length product (DLP) was 242.80 mGy-cm. Automated exposure control and iterative reconstruction technique were employed. FINDINGS/OBSERVATIONS: Visualized lower thorax: Bibasilar pleural thickening, right greater than left. The heart is of normal size, without pericardial effusion. Liver: The liver demonstrates homogeneous attenuation and is not enlarged measuring 16 cm in longitudinal di mension. Gallbladder and biliary system: The gallbladder is only minimally distended with layering calcified stones, and otherwise unremarkabl e. Pancreas: Limited evaluation of the pancreas secondary to the lack of intravenous contrast. Spleen: The spleen demonstrates homogeneous attenuation and is not enlarged measuring 8 cm in longitudinal di mension. Kidneys: The right kidney is poorly visualized (without intravenous contrast) and demonstrates significant hyd roureteronephrosis. The right kidney is continuous with the right psoas muscle which is markedly distended along its cour se as it extends posteriorly at the level of L3 and becomes continuous with a large soft tissue fluid collection containing 2 components: an intraperitoneal component and an extraperitoneal soft tissue component. The intraperitoneal component measures 6.3 x 8.1 x 21cm (anterior to posterior x medial to lateral x cranial to caudal dimension). The extraperitoneal soft tissue component measures: 6.2 x 14 x 16 cm (anterior to posterior x medial to lateral x cranial to caudal dimension). This fluid may represent urine, possibly from rupture of the right renal collecting system versus shea ss purulence from either an infected urinoma or right-sided pyelonephritis. Significant left-sided hydroureteronephrosis with a multilobulated nonobstructing calcification in th e lower pole measuring 14 mm. No additional calcifications are present. No obstructing source is identified within the distal left ureter to account for the left-sided hydro ureteronephrosis Adrenal glands: Unremarkable. Gastrointestinal tract: Trace fecal stasis within the colon which is otherwise unremarkable. Appendix: The appendix is not definitively visualized. However, no pericecal inflammatory change is identified suggest the presence of acute appendicitis. Vasculature: Unremarkable. Lymph nodes: No pathologically enlarged or morphologically suspicious lymph nodes within the retroperitoneum or at the root of the mesentery. Scattered subcentimeter lymph nodes within the retroperitoneum. Pelvic structures: The bladder is decompressed, and otherwise unremarkable. The uterus is retroverted and retroflexed, and otherwise unremarkable. Body wall and musculoskeletal: No significant degenerative disease within the lower thoracic or lumbosacral spine. IMPRESSION: Large fluid collection involving the right kidney, the right psoas muscle, and the soft tissues overl annette the right flank, as detailed above measuring 22 cm in craniocaudal dimension representing either a urinoma versus abscess. Left-sided hydroureteronephrosis without a visible source of obstruction. Cholelithiasis. Contrast-enhanced imaging would provide additional information (and is recommended), if the patient i s clinically able. Reviewed, dictated and finalized at location A. ORATE ADMINISTRATIVE ASSISTANT IMPRESSION: Large fluid collection involving the right kidney, the right psoas muscle, and the soft tissues overlying the right flank, as detailed above measuring 22 cm i n craniocaudal dimension representing either a urinoma versus abscess. Left-sided hydroureteronephrosis without a visible source of obstruction. Cholelithiasis. Contrast-enhanced imaging would provide additional information (and is recommen ded), if the patient is clinically able.
--- NOTE | ~2024-02-02 | CT_ITS ---
EXAMINATION: CT abdomen pelvis w con DATE: 02/03/2024 00:50 INDICATION: Right flank mass. TECHNIQUE: Computed tomography (CT) of the abdomen and pelvis was performed with 100 mL Omnipaque 350 intravenous contrast. Automated exposure control and iterative reconstruction technique were employe d. The dose-length product was 224.50 mGy-cm. COMPARISON: CT abdomen and pelvis 02/02/2024 FINDINGS: The visualized portions of the lung bases demonstrate mild atelectasis. There is a small ri ght pleural effusion. The heart size is normal. No pericardial effusion. The liver, gallbladder, sple en, pancreas, and left adrenal gland are normal. There is a cluster of stones in left kidney measurin g up to 6 mm. There is urothelial thickening and enhancement bilaterally. There is mild left hydronep hrosis. There is severe right hydronephrosis. There is moderate atrophy of right kidney. There is a m ultiloculated right perinephric fluid collection with thick enhancing wall and septal involving the r ight iliopsoas muscle and extending posteriorly to the skin measuring 15.8 x 14.0 x 15.2 cm. There is physiologic fluid in the pelvis. There are no dilated loops of bowel. There are changes of appendect driss. There is mild retroperitoneal lymphadenopathy, likely reactive. There are erosions of right 12th rib and right lateral aspect of T12, L1, and L2 vertebral bodies, consistent with osteomyelitis. IMPRESSION: 1. 15.8 x 14.0 x 15.2 cm right perinephric abscess extending posteriorly to the skin. 2. Osteomyelitis of the adjacent right 12th rib and T12, L1, and L2 vertebral bodies. 3. Severe right hydronephrosis with moderate atrophy of right kidney. Right-sided pyelonephritis. 4. Left-sided pyelitis with mild left hydronephrosis. 5. Nonobstructing left kidney stones. Reviewed, dictated and finalized at location A. [employer] IMPRESSION: 1. 15.8 x 14.0 x 15.2 cm right perinephric abscess extending posteriorly to the skin. 2. Osteomyelitis of the adjacent right 12th rib and T12, L1, and L2 vertebral b odies. 3. Severe right hydronephrosis with moderate atrophy of right kidney. Right-jany ed pyelonephritis. 4. Left-sided pyelitis with mild left hydronephrosis. 5. Nonobstructing left kidney stones.
[2024-02-02 19:04] VITALS: BP 93/70; PULSE 120; RESP 18; TEMP 36.3; O2SAT 100
--- NOTE | 2024-02-02 19:07 | ECG_ITS ---
Test Date: 2024-02-02 20:14:10 Measurements Intervals [place] Rate: 112 P: 63 TX: 139 QRS: 34 QRSD: 64 T: 24 QT: 242 QTc: 330 Interpretive Statements SINUS TACHYCARDIA BORDERLINE ST-T WAVE ABNORMALITY- DIFFUSE LEADS BASELINE ARTIFACT- I, II, III, AVR, AVL, AVF, V1-V6 ABNORMAL ECG No previous ECG available for comparison Electronically Signed On 02-03-2024 06:51:[address] CLERK by Jim Farmer D.O.
--- NOTE | 2024-02-02 19:17 | ED.GENADULT ---
HPI - General Adult General Chief complaint: Back Pain/Injury <Sophy Pugh APRN - Last Filed: 02/02/24 19:21> Stated complaint: back pain <Sophy Pugh APRN - Last Filed: 02/02/24 19:21> Time Seen by Provider: 02/02/24 19:00 <Sophy Pugh APRN - Last Filed: 02/02/24 19:21> Focused HPI: Patient is a 38-year-old female who presents to the ER with complaints of back pain. She has a history Bipolar disorder, CAD (coronary artery disease), CVA, HLD (hyperlipidemia), and Myocardial infarction. Patient reports she has back pain that started earlier today. She is not ambulatory so there is concern for a pressure ulcer. Patient also has a history of cystitis. She denies any recent fevers, chest pain, or shortness of breath. GENERAL: Well-appearing, well-nourished, and in no acute distress. HEAD: Normocephalic, atraumatic. CHEST: Clear to auscultation. ?No respiratory distress. HEART: Tachycardia and irregular rhythm.? NEURO: ?Alert and oriented x3. Confined to wheel-chair at baseline, although able to feel in lower extremities. Patient screened in triage and initial orders placed.? ?Additional care and disposition to be based upon?diagnostic testing and treatment. <Sophy Pugh APRN - Last Filed: 02/02/24 19:21> History of Present Illness HPI narrative: I agree with the HPI as documented in the medical screening exam a as above. The patient denies any known trauma. She describes the pain as sharp, rated 8/10 without any radiation. She has no other complaints at this time. <Ronald Cox MD - Last Filed: 02/03/24 04:36> Related Data Home medications: Home Medications Medication Instructions Recorded Confirmed acetaminophen 650 mg 650 mg PO Q8H PRN Pain, Mild 12/29/22 12/29/22 tablet,extended release aspirin 81 mg tablet 81 mg PO DAILY 12/29/22 12/29/22 atorvastatin 20 mg tablet 20 mg PO HS 12/29/22 12/29/22 cyclobenzaprine 5 mg tablet 5 mg PO TID PRN Muscle Spasm 12/29/22 12/29/22 duloxetine 60 mg capsule,delayed 120 mg PO DAILY 12/29/22 12/29/22 release famotidine 20 mg tablet 20 mg PO BID 12/29/22 12/29/22 gabapentin 100 mg tablet 200 mg PO TID 12/29/22 12/29/22 melatonin 5 mg tablet 5 mg PO HS PRN Insomnia 12/29/22 12/29/22 olanzapine 10 mg tablet 10 mg PO QHS 12/29/22 12/29/22 ondansetron HCl 4 mg tablet 4 mg PO Q6H PRN Nausea 12/29/22 12/29/22 polyethylene glycol 3350 17 gram 17 g PO DAILY 12/29/22 12/29/22 oral powder packet (Miralax) polyethylene glycol 3350 17 gram 17 g PO DAILY PRN Constipation 12/29/22 12/29/22 oral powder packet (Miralax) tramadol 50 mg tablet 50 mg PO Q6H PRN Pain, Moderate 12/29/22 12/29/22 <Sophy Pugh APRN - Last Filed: 02/02/24 19:21> Allergies/adverse reactions: Allergies Allergy/AdvReac Type Severity Reaction Status Date / Time No Known Allergies Allergy Verified 02/02/24 20:03 <Sophy Pugh APRN - Last Filed: 02/02/24 19:21> Review of Systems Review of Systems: All systems reviewed & are unremarkable except as noted in HPI and below <Ronald Cox MD - Last Filed: 02/03/24 04:36> [facility] Past Medical History Medical History: Medical History Bedbound Bipolar disorder CAD (coronary artery disease) CVA, old, speech/language deficit Residual Weakness: L and R, upper and lower HLD (hyperlipidemia) IBS (irritable bowel syndrome) Myocardial infarction <Sophy Pugh APRN - Last Filed: 02/02/24 19:21> Social History Social History: Social History Social History: currently a resident at [place]. surrogate decision maker: . full code Smoking status: Never smoker Alcohol intake: never Substance use: never Spiritual care concerns: No <Sophy Pugh APRN - Last Filed: 02/02/24 19:21> Exam Narrative: GENERAL: Well-developed, Thin, and in no acute distress. HEAD: Normocephalic, atraumatic. EYES: PERRLA and EOMI. ENT: Nares clear, no rhinorrhea or epistaxis. Mucous membranes moist. Oropharynx without tonsillar hypertrophy exudate or other lesions. CHEST: Clear to auscultation. No respiratory distress. No wheezes rales or rhonchi HEART: Regular rate and rhythm. No murmur heard. Normal peripheral pulses. ABDOMEN: Soft, nontender, nondistended, normal active bowel sounds. BACK: There is a approximate 12 cm diameter fluctuant, tender, nonerythematous mass noted to the right flank, just superior to the iliac crest that appears to communicate around to the mid axillary line. There is a stage I sacral ulcer measuring approximately 5 cm in diameter EXTREMITIES: Normal range of motion. No edema. SKIN: Warm, dry, no rash. NEURO: Alert and oriented x3. Paraplegic. PSYCH: Normal mood and affect. <Ronald Cox MD - Last Filed: 02/03/24 04:36> Course Course Emergency Course: 21:15 - I have increased concern for sepsis and possible abscess. Will treat with Zosyn for suspected abscess. Chart review shows the patient's blood pressure tends to run in the low 100s to high 90s. I do not suspect the need for 30 cc/kg bolus at this time. Will reassess 1 lactic acid is available. 02:31 - Despite IV fluids, the patient's blood pressure continues to decreased to the 80s. The patient was started on Levophed. A right IJ central line was placed. Please see procedure note. 03:45 - The patient had an initial CT noncon abdomen pelvis. It was suspected that the patient had thyroid radiotherapy. After further questioning and finding a large fluid collection in the abdomen that appears to communicate with the subcutaneous tissue, the patient was consented for a contrast CT. STAT Rad interpretation of CT abdomen pelvis with contrast demonstrates moderate to severe right hydronephrosis without obstructing ureteral stone identified. suspect component of right-sided pyelonephritis. Large rim enhancing fluid collection inferior to the right kidney measuring approximately 5.9 x 4.8 x 6.0 cm. Very large rim enhancing fluid collection posterior to the right kidney with retroperitoneal component measuring approximately 9.1 x 6.2 x 21 cm and component extending into the right flank subcutaneous tissues measuring approximately 15.3 x 6.2 by 14.3 cm. Findings are concerning for abscess. The patient's white blood cell count is elevated to 19.2 with hemoglobin is 8.3 and platelets of 730, consistent with dehydration and Sepsis. chemistries demonstrate hypokalemia with potassium of 2.7 with a normal creatinine of 0.7. Initial lactic acid elevated at 2.9. This improved after IV fluids to 1.1. Troponin negative. UA demonstrates changes consistent with UTI. The patient's blood pressure began decreasing despite IV fluids. She was started on IV Levophed and a right IJ central line was placed. I discussed the patient with general surgeon, Dr. Womack as well as urologist, Dr. Fleming who both recommended IR intervention. This is not available at our facility at this time. [facility] The patient was accepted by conveyor system dispatcher, Dr. Anderson. I do not speak directly with Dr. Anderson. <Ronald Cox MD - Last Filed: 02/03/24 04:36> Vital Signs Vital signs: Vital Signs Temperature 97.4 F L 02/02/24 19:04 Pulse Rate 120 H 02/02/24 19:04 Respiratory Rate 18 02/02/24 19:04 Blood Pressure 93/70 L 02/02/24 19:04 Pulse Oximetry 100 02/02/24 19:04 Temperature 97.0 F L 02/02/24 20:22 Pulse Rate 124 H 02/03/24 02:36 Respiratory Rate 25 H 02/03/24 02:35 Blood Pressure 110/80 02/03/24 02:36 Pulse Oximetry 100 02/03/24 02:35 <Sophy Pugh APRN - Last Filed: 02/02/24 19:21> Vital Signs Temperature 97.4 F L 02/02/24 19:04 Pulse Rate 120 H 02/02/24 19:04 Respiratory Rate 18 02/02/24 19:04 Blood Pressure 93/70 L 02/02/24 19:04 Pulse Oximetry 100 02/02/24 19:04 Temperature 97.0 F L 02/02/24 20:22 Pulse Rate 124 H 02/03/24 02:36 Respiratory Rate 25 H 02/03/24 02:35 Blood Pressure 110/80 02/03/24 02:36 Pulse Oximetry 100 02/03/24 02:35 <Ronald Cox MD - Last Filed: 02/03/24 04:36> Procedures Central Line Placement Right IJ: Central Line Date: 02/03/24 <Ronald Cox MD - Last Filed: 02/03/24 04:36> Central Line Time: 02:31 <Ronald Cox MD - Last Filed: 02/03/24 04:36> Discussed w/ the patient/family/POA,the placement of a central venous catheter, including its clinical necessity/indication & associated potential risks, benifits and alternatives.: Yes <Ronald Cox MD - Last Filed: 02/03/24 04:36> Time Out Performed: Yes <Ronald Cox MD - Last Filed: 02/03/24 04:36> Patient Placed on Monitor/Pulse Ox: Yes <Ronald Cox MD - Last Filed: 02/03/24 04:36> Max. Sterile Barrier Technique: Caps, large sterile sheet and hand hygiene <Ronald Cox MD - Last Filed: 02/03/24 04:36> Central Line Prep: 2% chlorhexidine scrub <Ronald Cox MD - Last Filed: 02/03/24 04:36> Technique: US-Guided <Ronald Cox MD - Last Filed: 02/03/24 04:36> Local Anesthetic: lidocaine 1% <Ronald Cox MD - Last Filed: 02/03/24 04:36> Amount of anesthesia used (mL): 5 <Ronald Cox MD - Last Filed: 02/03/24 04:36> Ultrasound Used for Placement: Yes <Ronald Cox MD - Last Filed: 02/03/24 04:36> Central Line Lumen Inserted: triple <Ronald Cox MD - Last Filed: 02/03/24 04:36> Post Procedure: sutured in place, good blood return, all ports aspirated, flushed, capped and sterile dressing applied <Ronald Cox MD - Last Filed: 02/03/24 04:36> Post Procedure X-Ray: tip of catheter in good position and no pneumothorax seen <Ronald Cox MD - Last Filed: 02/03/24 04:36> Patient Tolerated Procedure: well <Ronald Cox MD - Last Filed: 02/03/24 04:36> Complications: none <Ronald Cox MD - Last Filed: 02/03/24 04:36> Medical Decision Making MDM Narrative Medical decision making narrative: plan: Labs, imaging, pain control, sepsis protocol, reassess <Ronald Cox MD - Last Filed: 02/03/24 04:36> Differential Diagnosis Differential Diagnosis: abscess, cyst, intra-abdominal mass, retroperitoneal mass, sepsis, metabolic abnormality, other <Ronald Cox MD - Last Filed: 02/03/24 04:36> Vital Signs Vital Signs: Vital Signs Temperature 97.4 F L 02/02/24 19:04 Pulse Rate 120 H 02/02/24 19:04 Respiratory Rate 18 02/02/24 19:04 Blood Pressure 93/70 L 02/02/24 19:04 Pulse Oximetry 100 02/02/24 19:04 Temperature 97.0 F L 02/02/24 20:22 Pulse Rate 124 H 02/03/24 02:36 Respiratory Rate 25 H 02/03/24 02:35 Blood Pressure 110/80 02/03/24 02:36 Pulse Oximetry 100 02/03/24 02:35 <Sophy Pugh APRN - Last Filed: 02/02/24 19:21> Vital Signs Temperature 97.4 F L 02/02/24 19:04 Pulse Rate 120 H 02/02/24 19:04 Respiratory Rate 18 02/02/24 19:04 Blood Pressure 93/70 L 02/02/24 19:04 Pulse Oximetry 100 02/02/24 19:04 Temperature 97.0 F L 02/02/24 20:22 Pulse Rate 124 H 02/03/24 02:36 Respiratory Rate 25 H 02/03/24 02:35 Blood Pressure 110/80 02/03/24 02:36 Pulse Oximetry 100 02/03/24 02:35 <Ronald Cox MD - Last Filed: 02/03/24 04:36> Lab Data Result diagrams: 02/02/24 22:00 02/02/24 22:00 <Sophy Pugh APRN - Last Filed: 02/02/24 19:21> Labs: Lab Results 02/02/24 02/02/24 02/03/24 Range/Units 22:00 23:24 03:10 WBC 19.2 H (4.5-10.0) K/mm3 RBC 3.48 L (4.2-5.4) M/mm3 Hgb 8.3 L D (12.0-15.0) g/dL Hct 29.4 L (37.0-47.0) % MCV 84.5 (80-100) fl MCH 23.9 L (26-34) pg MCHC 28.2 L (32-36) g/dl RDW 17.3 H (11.5-14.5) % Plt Count 730 H D (150-375) k/mm3 MPV 9.0 (7.4-10.4) fl Immature Gran % (Auto) 0.7 H (0-0.5) % Neut % (Auto) 74.2 H (45.5-73.1) % Lymph % (Auto) 15.8 L (18.3-44.2) % [place] % (Auto) 6.7 (2.6-8.5) % Eos % (Auto) 2.3 (0-4.4) % Baso % (Auto) 0.3 (0.2-1.2) % Lymph # (Auto) 3.04 (0.9-3.2) K/mm3 [place] # (Auto) 1.3 H (0.1-0.6) K/mm3 Eos # (Auto) 0.5 H (0-0.3) K/mm3 Baso # (Auto) 0.1 (0.0-0.1) K/mm3 Abs Immat Gran (auto) 0.14 H (0.00-0.031) K/mm3 Absolute Neuts (auto) 14.2 H (1.3-6.7) K/mm3 Absolute Nucleated RBC 0.000 (0.0-0.012) K/mm3 Nucleated RBC % 0.0 (0.0-0.2) % PT 16.0 H (11.1-14.7) Seconds INR 1.2 APTT 38.7 H (22.3-36.8) Seconds Sodium 136 L (137-145) mmol/L Potassium 2.7 L* (3.4-5.0) mmol/L Chloride 97 L (98-107) mmol/L Carbon Dioxide 27 (22-30) mmol/L Anion Gap 12 (4-12) mmol/L BUN 10 (7-17) mg/dL Creatinine 0.70 (0.7-1.0) mg/dL Estim Creat Clear Calc 57 ml/min Estimated GFR > 60 (59 - ) Glucose 88 (65-110) mg/dL Lactic Acid 2.9 H 1.1 (0.7-2.0) mmol/L Calcium 7.9 L (8.4-10.2) mg/dL Total Bilirubin 0.4 (0.2-1.3) mg/dL AST 21 (14-36) U/L ALT 17 (6-35) U/L Alkaline Phosphatase 204 H (38-126) U/L Troponin I < 0.012 (0.000-0.034) ng/mL C-Reactive Protein 23.5 H (<1.0) mg/dL Total Protein 7.0 (6.3-8.2) g/dL Albumin 2.5 L (3.5-5.1) g/dL Urine Color Yellow (Yellow) Urine Appearance Turbid H (Clear) Urine pH 8.0 (5.0-9.0) Ur Specific [place] 1.012 (1.001-1.035) Urine Protein 2+ H (Negative) mg/dL Urine Glucose (UA) Negative (Negative) mg/dL Urine Ketones Negative (Negative) mg/dL Ur Blood (Man) 3+ H (Negative) Urine Nitrate Negative (Negative) Urine Bilirubin Negative (Negative) Urine Urobilinogen 1.0 (<2.0) mg/dL Add Ur Microanalysis Reviewed Leukocyte Esterase Rfl 3+ H (Negative) ANASTACIO/UL Urine RBC 11-20 H (0-2) /hpf Urine WBC >100 H (0-3) /hpf Ur Squamous Epith Cells Occasional (Few) /hpf Urine Bacteria 4+ H /hpf Urine Casts >20 <Sophy Pugh, WELDER ASSEMBLER - Last Filed: 02/02/24 19:21> Lab Results 02/02/24 02/02/24 02/03/24 Range/Units 22:00 23:24 03:10 WBC 19.2 H (4.5-10.0) K/mm3 RBC 3.48 L (4.2-5.4) M/mm3 Hgb 8.3 L D (12.0-15.0) g/dL Hct 29.4 L (37.0-47.0) % MCV 84.5 (80-100) fl MCH 23.9 L (26-34) pg MCHC 28.2 L (32-36) g/dl RDW 17.3 H (11.5-14.5) % Plt Count 730 H D (150-375) k/mm3 MPV 9.0 (7.4-10.4) fl Immature Gran % (Auto) 0.7 H (0-0.5) % Neut % (Auto) 74.2 H (45.5-73.1) % Lymph % (Auto) 15.8 L (18.3-44.2) % [place] % (Auto) 6.7 (2.6-8.5) % Eos % (Auto) 2.3 (0-4.4) % Baso % (Auto) 0.3 (0.2-1.2) % Lymph # (Auto) 3.04 (0.9-3.2) K/mm3 [place] # (Auto) 1.3 H (0.1-0.6) K/mm3 Eos # (Auto) 0.5 H (0-0.3) K/mm3 Baso # (Auto) 0.1 (0.0-0.1) K/mm3 Abs Immat Gran (auto) 0.14 H (0.00-0.031) K/mm3 Absolute Neuts (auto) 14.2 H (1.3-6.7) K/mm3 Absolute Nucleated RBC 0.000 (0.0-0.012) K/mm3 Nucleated RBC % 0.0 (0.0-0.2) % PT 16.0 H (11.1-14.7) Seconds INR 1.2 APTT 38.7 H (22.3-36.8) Seconds Sodium 136 L (137-145) mmol/L Potassium 2.7 L* (3.4-5.0) mmol/L Chloride 97 L (98-107) mmol/L Carbon Dioxide 27 (22-30) mmol/L Anion Gap 12 (4-12) mmol/L BUN 10 (7-17) mg/dL Creatinine 0.70 (0.7-1.0) mg/dL Estim Creat Clear Calc 57 ml/min Estimated GFR > 60 (59 - ) Glucose 88 (65-110) mg/dL Lactic Acid 2.9 H 1.1 (0.7-2.0) mmol/L Calcium 7.9 L (8.4-10.2) mg/dL Total Bilirubin 0.4 (0.2-1.3) mg/dL AST 21 (14-36) U/L ALT 17 (6-35) U/L Alkaline Phosphatase 204 H (38-126) U/L Troponin I < 0.012 (0.000-0.034) ng/mL C-Reactive Protein 23.5 H (<1.0) mg/dL Total Protein 7.0 (6.3-8.2) g/dL Albumin 2.5 L (3.5-5.1) g/dL Urine Color Yellow (Yellow) Urine Appearance Turbid H (Clear) Urine pH 8.0 (5.0-9.0) Ur Specific [place] 1.012 (1.001-1.035) Urine Protein 2+ H (Negative) mg/dL Urine Glucose (UA) Negative (Negative) mg/dL Urine Ketones Negative (Negative) mg/dL Ur Blood (Man) 3+ H (Negative) Urine Nitrate Negative (Negative) Urine Bilirubin Negative (Negative) Urine Urobilinogen 1.0 (<2.0) mg/dL Add Ur Microanalysis Reviewed Leukocyte Esterase Rfl 3+ H (Negative) ANASTACIO/UL Urine RBC 11-20 H (0-2) /hpf Urine WBC >100 H (0-3) /hpf Ur Squamous Epith Cells Occasional (Few) /hpf Urine Bacteria 4+ H /hpf Urine Casts >20 <Ronadl Cox MD - Last Filed: 02/03/24 04:36> ECG Data EKG #1: Attestation: I personally reviewed and interpreted this ECG as follows: <Ronald Cox MD - Last Filed: 02/03/24 04:36> ECG completion date: 02/03/24 <Ronald Cox MD - Last Filed: 02/03/24 04:36> ECG completion time: 20:14 <Ronald Cox MD - Last Filed: 02/03/24 04:36> Prior ECG tracings: not available for review <Ronald Cox MD - Last Filed: 02/03/24 04:36> Interpretation: Sinus tachycardia, rate 112, normal axis, no ST segment elevations or T-wave inversions concerning for ischemia, shortened QTC of 330 with otherwise normal intervals <Ronald Cox MD - Last Filed: 02/03/24 04:36> Critical Care Time Critical Care Time Critical Care Time: Yes <Ronald Cox MD - Last Filed: 02/03/24 04:36> Total Critical Care Time: 60 <Ronald Cox MD - Last Filed: 02/03/24 04:36> Discharge Plan Discharge Clinical Impression: Pyelonephritis, Abscess, retroperitoneal, Abscess of flank, Hypokalemia Acute right-sided back pain Qualifiers: Back pain location: low back pain Sciatica presence: without sciatica Qualified Code(s): M54.50 - Low back pain, unspecified Sepsis Qualifiers: Sepsis type: sepsis due to unspecified organism Severe sepsis shock status: with septic shock <Sophy Pugh APRN - Last Filed: 02/02/24 19:21> Patient Disposition: Acute Care Hospital <Sophy Pugh APRN - Last Filed: 02/02/24 19:21> Condition: Serious <Sophy Pugh APRN - Last Filed: 02/02/24 19:21> Prescriptions: No Action aspirin 81 mg Tablet 81 mg PO DAILY atorvastatin 20 mg Tablet 20 mg PO HS polyethylene glycol 3350 [Miralax] 17 gram Powder In Packet 17 g PO DAILY polyethylene glycol 3350 [Miralax] 17 gram Powder In Packet 17 g PO DAILY PRN (Reason: Constipation) ondansetron HCl 4 mg Tablet 4 mg PO Q6H PRN (Reason: Nausea) olanzapine 10 mg Tablet 10 mg PO QHS tramadol 50 mg Tablet 50 mg PO Q6H PRN (Reason: Pain, Moderate) acetaminophen 650 mg Tablet Extended Release 650 mg PO Q8H PRN (Reason: Pain, Mild) famotidine 20 mg Tablet 20 mg PO BID cyclobenzaprine 5 mg Tablet 5 mg PO TID PRN (Reason: Muscle Spasm) duloxetine 60 mg Capsule,Delayed Release(Dr/Ec) 120 mg PO DAILY gabapentin 100 mg Tablet 200 mg PO TID melatonin 5 mg Tablet 5 mg PO HS PRN (Reason: Insomnia) <Sophy Pugh APRN - Last Filed: 02/02/24 19:21> Follow-up/Referrals: Ampadu,MD Pepe [Primary Care Provider] - <Sophy Pugh APRN - Last Filed: 02/02/24 19:21> Time of Disposition: 03:45 <Sophy Pugh APRN - Last Filed: 02/02/24 19:21> 03:45 <Ronald Cox MD - Last Filed: 02/03/24 04:36>
[2024-02-02 19:59] VITALS: BP 109/90; PULSE 120; RESP 16; O2SAT 97
[2024-02-02 20:22] VITALS: PULSE 114; TEMP 36.1; O2SAT 100
[2024-02-02] MEDS: SODIUM CHLORIDE 0.9% IV 1,000 ML 999 ML IV CONT ×2 (21:19→23:26)
[2024-02-02 21:20] VITALS: BP 93/73; PULSE 115; RESP 18; O2SAT 100
--- NOTE | 2024-02-02 21:28 | PC.NURSE ---
phlebotomy called due to patient being stuck by x4 RNs, x1 tech, x1 doctor with unsuccessful blood drawn. ed rn hemodialysis charge notified.
[2024-02-02 22:19] LABS: Basophils Absolute Auto 0.1 K/mm3 (0.0-0.1); Basophils Percent Auto 0.3 % (0.2-1.2); Eosinophils Absolute Auto 0.5 K/mm3 (0-0.3); Eosinophils Percent Auto 2.3 % (0-4.4); Hematocrit 29.4 % (37.0-47.0); Hemoglobin 8.3 g/dL (12.0-15.0); Immature Granulocyte Absolute 0.14 K/mm3 (0.00-0.031); Immature Granulocyte Percent A 0.7 % (0-0.5); Lymphocytes Absolute Auto 3.04 K/mm3 (0.9-3.2); Lymphocytes Percent Auto 15.8 % (18.3-44.2); Mean Corpuscular HGB Conc 28.2 g/dl (32-36); Mean Corpuscular Hemoglobin 23.9 pg (26-34); Mean Corpuscular Volume 84.5 fl (80-100); Monocytes Absolute Auto 1.3 K/mm3 (0.1-0.6); Monocytes Percent Auto 6.7 % (2.6-8.5); Neutrophils Absolute Auto 14.2 K/mm3 (1.3-6.7); Neutrophils Percent Auto 74.2 % (45.5-73.1); Platelet Count Result 730 k/mm3 (150-375); Red Blood Count 3.48 M/mm3 (4.2-5.4); Red Cell Distribution Width 17.3 % (11.5-14.5); White Blood Count 19.2 K/mm3 (4.5-10.0)
[2024-02-02 22:30] LABS: Lactic Acid Reflex 2.9 mmol/L (0.7-2.0)
[2024-02-02 22:37] LABS: INR 1.2
[2024-02-02 22:38] LABS: Partial Thromboplastin Time 38.7 Seconds (22.3-36.8)
[2024-02-02 22:40] LABS: Troponin I < 0.012 ng/mL (0.000-0.034)
[2024-02-02 22:46] LABS: Alanine Aminotransferase 17 U/L (6-35); Albumin Level 2.5 g/dL (3.5-5.1); Alkaline Phosphatase 204 U/L (38-126); Anion Gap 12 mmol/L (4-12); Aspartate Amino Transferase 21 U/L (14-36); Bilirubin,Total 0.4 mg/dL (0.2-1.3); Blood Urea Nitrogen 10 mg/dL (7-17); CRP 23.5 mg/dL (<1.0); Calcium 7.9 mg/dL (8.4-10.2); Carbon Dioxide 27 mmol/L (22-30); Chloride 97 mmol/L (98-107); Estimated CRCL calculation 57 ml/min; Estimated Glomerular Filt Rate > 60; Glucose 88 mg/dL (65-110); Potassium 2.7 mmol/L (3.4-5.0); Sodium 136 mmol/L (137-145)
--- NOTE | 2024-02-02 22:57 | PC.NURSE ---
phlembotomy unable to complete blood draw. edp dr. taylor aware. edp dr. peraza straight stuck patient for blood using ultrasound. x1 blood culture was sent to lab.
[2024-02-02] MEDS: PIPERACILLN/TAZ 3.375GM/NS50ML 3.375 GM/50 ML BAG IVPB (23:13)
[2024-02-02] MEDS: POTASSIUM CHLORIDE 20 MEQ PACKET (FOR LIQUID) 40 MEQ PO (23:13)
[2024-02-02 23:14] VITALS: BP 100/72; PULSE 115; RESP 19; O2SAT 100
--- NOTE | 2024-02-02 23:24 | PC.NURSE ---
pt to thiago gambino per edp dr. taylor with x1 blood culture bottle sent to lab. this rn also received a vorb to give patient 1L of normal saline at a rate of 999mls/ hour due to blood pressure of 87/66. this rn used closed loop communication to confirm medication, patient, route, time, and amount. edp dr. taylor confirmed.
[2024-02-02 23:38] LABS: Add Urine Microscopic? YES; Appearance Urine Turbid (Clear); Bacteria Urine 4+ /hpf; Bilirubin Urine Negative (Negative); Blood Urine 3+ (Negative); Color Urine Yellow (Yellow); Glucose Urine UA Negative (Negative); Ketones Urine Negative (Negative); Leukocyte Esterase Ur 3+ LEU/UL (Negative); Need Manual Microscopic Reviewed; Nitrate Urine Negative (Negative); Non Pathogenic Casts >20; Protein Urine 2+ mg/dL (Negative); Specific Grav Ur 1.012 (1.001-1.035); Squamous Epithelial Cell Urine Occasional /hpf (Few); WBC Urine >100 /hpf (0-3)
[2024-02-03] VITALS (35 sets, daily range): BP systolic 78–132; BP diastolic 56–100; PULSE 88–129; RESP 12–29; O2SAT 94–100
[2024-02-03] MEDS: POTASSIUM CHLORIDE INJ 40 MEQ in SODIUM CHLORIDE 0.9% IV 500 ML 130 MEQ IVPB (00:13)
[2024-02-03 01:16] LABS: Reflex Lactic Acid Yes or No Add Lactic
--- NOTE | 2024-02-03 02:06 | PC.NURSE ---
pt repositioned with pillow under the left side. pt was rolled.
--- NOTE | 2024-02-03 02:28 | PC.NURSE ---
this rn spoke with Soledad in [facility] who confirmed that levophed and potassium could run at the same time.
[2024-02-03] MEDS: NOREPINEPHRINE 8 MG/D5W 250 ML 8 MG/250 ML BAG 15 MG IV CONT (02:36)
--- NOTE | 2024-02-03 02:38 | PC.NURSE ---
pt verbalized the potassium adames too bad, want to drink it . this rn verbalized to edp dr. taylor. edp dr. fish stated to pause potassium infusion at this time.
--- NOTE | 2024-02-03 02:40 | PC.NURSE ---
penny rn verified dose of levophed
[2024-02-03 03:27] LABS: Lactic Acid 1.1 mmol/L (0.7-2.0)
[2024-02-03] MEDS: VANCOMYCIN 1,000 MG/NS 250 ML 1,000 MG/250 ML BAG 250 MG IVPB (03:33)
[2024-02-03] MEDS: SODIUM CHLORIDE 0.9% IV 500 ML 200 ML (05:52)
== END 2024-02-03 07:04 | disposition short-term general hospital (02) ==
PROVIDERS: Registered Nurse; Emergency Provider Preventive Medicine Aerospace Medicine; PCP Internal Medicine
DX: K68.19 Other retroperitoneal abscess (principal); N12 Tubulo-interstitial nephritis, not specified as acute or chronic; E87.6 Hypokalemia; I25.10 Atherosclerotic heart disease of native coronary artery without angina pectoris; F31.9 Bipolar disorder, unspecified; E78.5 Hyperlipidemia, unspecified; I25.2 Old myocardial infarction
CPT/HCPCS: 36415; 36556; 71045; 74176; 74177; 80053; 81001; 83605; 84484; 85025; 85610; 85730; 86140; 87040; 87077; 87086; 87186; 93005; 96361; 96365; 96366; 96367; 96368; 99291; A9270; C1751; J2543; J3370; J7030; J7040; Q9967